=== PATIENT | male | born 1945 | race Caucasian/White ===

== ENCOUNTER 2020-03-05 12:04 | Outpatient (CLI) | payer MEDICARE, OTHER, SELFPAY ==
--- NOTE | ~2020-03-05 | CT_ITS ---
EXAMINATION: CTA chest PE protocol EXAM DATE: 03/05/2020 13:01 INDICATION: Left-sided chest pain, pleurodynia. History of pleurisy. Cough. TECHNIQUE: Spiral CTA of the chest (pulmonary arteries) was performed with 100 cc Omnipaque 350 intr avenous contrast injection. Images were acquired during the pulmonary arterial phase. Coronal maxi mum intensity projection 3D-reconstructions were created by the technologist on dedicated workstation . Axial, coronal and sagittal reformatted images were reviewed. The dose-length product (DLP) for t his examination was 620.80 mGy-cm. The exposure was tailored according to patient size (auto mA exp osure control), and iterative reconstruction (ASIR) was used as additional dose reduction technique. There is no prior study for comparison. Correlation was made with left rib series from 02/24/2018. FINDINGS: There is pulmonary embolism in the left main pulmonary artery extending into multiple segm ental pulmonary arteries. There is associated lingular subsegmental and left lower lobe segmental air space disease most likely pulmonary infarction. No evidence of right heart strain. Pneumonia not excl udable. There is small left pleural effusion. Left lower lobe subsegmental atelectasis. No thoracic aortic dissection. The lungs are clear. There are no pleural or pericardial effusions. Tracheobr onchial tree is patent. There is no mediastinal, hilar or axillary lymphadenopathy. There is no p neumothorax. Heart normal in size. There is mild coronary arterial calcification, arterial sclero sis. There is large cystic region to the superior pole of the left kidney, completely imaged. Modera te-sized gastroesophageal hiatal hernia. There is thoracic spondylosis without osteoblastic or osteo lytic lesions identified. IMPRESSION: 1. Left main pulmonary artery embolism extending into multiple left-sided segmental arteries, associ ated airspace disease most likely pulmonary infarction. 2. Cystic region superior pole left kidney measuring at least 7.6 cm, could be cyst but clearly imag ed Incompletely imaged cystic. Consider follow-up ultrasound or CT. 3. Moderate-sized gastroesophageal hiatal hernia. STAT hold and call. I confirmed with Gabbie that patient is in waiting room, and who is notifying o [facility] doctor of results. Patient will be given instructions at that time. Reviewed, dictated and finalized at location B. IMPRESSION: 1. Left main pulmonary artery embolism extending into multiple left-sided segm ental arteries, associated airspace disease most likely pulmonary infarction. 2. Cystic region superior pole left kidney measuring at least 7.6 cm, could be cyst but clearly imaged Incompletely imaged cystic. Consider follow-up ultraso und or CT. 3. Moderate-sized gastroesophageal hiatal hernia. STAT hold and call. I confirmed with Gabbie that patient is in waiting room, and who is notifying ordering doctor of results. Patient will be given instruct ions at that time.
[2020-03-05 12:44] LABS: Estimated Glomerular Filt Rate 49
== END 2020-03-05 12:05 | disposition home or self-care (01) ==
PROVIDERS: PCP Family Medicine; Visit Provider Family Medicine
DX: R07.81 Pleurodynia (principal); K44.9 Diaphragmatic hernia without obstruction or gangrene
CPT/HCPCS: 36415; 71275; Q9967

== ENCOUNTER 2020-03-05 18:32 | Inpatient (IN) | payer MEDICARE, OTHER, SELFPAY ==
--- NOTE | ~2020-03-05 | US_ITS ---
EXAMINATION: US venous doppler [facility] DATE: 03/06/2020 15:24 INDICATION: Chest pain TECHNIQUE: Orr scale images without and with compression and Doppler images of the bilateral lower e xtremity veins were obtained. COMPARISON: 05/06/2017 FINDINGS: The right common femoral vein, profunda femoral vein, femoral vein, popliteal vein, peroneal trunk, p osterior tibial veins, and greater saphenous vein are patent. The left common femoral vein, profunda femoral vein, femoral vein, popliteal vein, peroneal trunk, po sterior tibial veins, and greater saphenous vein are patent. IMPRESSION: 1. Patent bilateral lower extremity veins. No evidence of deep venous thrombosis. Reviewed, dictated and finalized at location A. IMPRESSION: 1. Patent bilateral lower extremity veins. No evidence of deep venous thrombosi s.
--- NOTE | ~2020-03-05 | CT_ITS ---
EXAMINATION: CT abdomen pelvis wo/w con DATE: 03/07/2020 13:00 INDICATION: Hydronephrosis TECHNIQUE: Computed tomography (CT) of the abdomen and pelvis was performed without intravenous contr ast. CT of the abdomen and pelvis was then performed with a total of 100 mL Omnipaque 350 intravenous contrast. The dose-length product (DLP) was 1268.53 mGy-cm. Automated exposure control and iterative reconstruction technique were employed. COMPARISON: 11/30/2003, 03/05/2020 FINDINGS: Peripheral airspace opacities are again seen in the lingula and left lower lobe, possibly e volving pulmonary infarction related to pulmonary embolism. There is a moderate-sized hiatal hernia. The heart size is normal. The liver, spleen, pancreas, gallbladder, and adrenal glands are normal. Cy sts of the right kidney measure up to 5.5 cm. There is severe left hydroureteronephrosis which contin ues to the level of the left distal ureter. No definite stone or urothelial lesion is identified. The re is significant cortical parenchymal thinning of the left kidney. There is calcified atherosclerosi s of the aorta and many of the other arteries. No pathologically enlarged abdominal or pelvic lymph n odes are identified. There is a fat-containing umbilical hernia. There is severe lumbar spondylosis. There is no free intraperitoneal gas or evidence of bowel obstruction. Tiny fat-containing umbilical hernia is noted. There are surgical clips in the pelvis, likely related to prostatectomy. IMPRESSION: 1. Severe left hydroureteronephrosis with severe cortical parenchymal thinning of the left kidney con tinuing to the level of the distal ureter of unclear etiology. No definite stone or stricture identif ied. 2. Peripheral opacities in the lingula and left lower lobe, likely evolving pulmonary infarct related to pulmonary embolism. Reviewed, dictated and finalized at location A. IMPRESSION: 1. Severe left hydroureteronephrosis with severe cortical parenchymal thinning of the left kidney continuing to the level of the distal ureter of unclear etio logy. No definite stone or stricture identified. 2. Peripheral opacities in the lingula and left lower lobe, likely evolving pul monary infarct related to pulmonary embolism.
--- NOTE | ~2020-03-05 | US_ITS ---
EXAMINATION: US renal BI EXAM DATE: 03/06/2020 15:24 INDICATION: Cystic lesion on pulmonary CT. TECHNIQUE: Multiple grayscale and Doppler images of the kidneys were obtained (by a technologist who performed the scan) and subsequently reviewed. There is no prior study for comparison. FINDINGS: Right kidney: There is normal contour and echogenicity. It measures 11.4 x 5.3 x 6.0 centimeters. An echoic exophytic lesion off the lower pole likely a cyst measuring up to 5.6 cm. There is no hydron ephrosis. Left kidney: There is normal contour and echogenicity with renal cortical thinning. It measures 17.3 x 10.8 x 10.0 centimeters. There is severe hydronephrosis, caliectasis, likely from chronic long-sta nding low-grade UPJ or ureteral obstruction, but there was no evidence of hydronephrosis on a CT scan in 2003. There is no hydronephrosis. Bladder unremarkable. IMPRESSION: 1. Probable severe chronic right-sided hydronephrosis. Reviewed, dictated and finalized at location B.
--- NOTE | ~2020-03-05 | NM_ITS ---
EXAMINATION: LUIS MANUEL umaña renal scan DATE: 03/07/2020 14:02 INDICATION: Hydronephrosis TECHNIQUE: 1.7 mCi Tc-99m MAG3 was administered IV. 40 mg furosemide was administered IV immediately afterward. The patient was scanned in the supine position. A posterior abdominal radionuclide angiog lorena was obtained. A subsequent time course of static images of the kidneys, ureters, and bladder was obtained. COMPARISON: None FINDINGS: The posterior abdominal radionuclide angiogram and sequential static images show normal size, positio n, and morphology of the right kidney. There is a small region of parenchymal uptake at the upper zachariah e of the left kidney which on CT can be seen at the periphery of the markedly dilated left renal morro ecting system with no discernible uptake associated with the very thin peripheral cortex along the mi d and lower left kidney. Peak renal parenchymal uptake was 28 min in left kidney and 1.8 min in right kidney (normal peak 3-5 minutes). The relative early renal uptake was 98% on the right and 2% on th e left (<40% is abnormal). No abnormalities of the ureters or bladder are seen. T1/2 for clearance of activity from the left kidney and proximal collecting system was unable to be d etermined due to the markedly decreased left renal function. T1/2 for clearance of activity from the right kidney and proximal collecting system was 13.7 minutes. Notes on interpretation: T1/2 <10 minutes is normal, 10-15 minutes is low grade obstruction of questi onable clinical significance, 15-20 minutes is partial obstruction that is likely clinically signific ant, >20 minutes is high grade obstruction. Note that false positives may be seen with supine positio adiel, dehydration, severely dilated nonobstructed kidney, atonic collecting system, poor renal functi on, and chronic furosemide use. IMPRESSION: 1. Severe parenchymal atrophy and markedly reduced renal activity of the left kidney likely related to the severe hydronephrosis identified on prior CT. The markedly reduced renal function which contri butes only 2% to total renal function precludes assessment for degree of on going obstruction. 2. Mildly delayed activity clearance from the right kidney which could be seen with low-grade obstru ction but without hydronephrosis on the immediately prior CT which would argue against obstruction wi th additional differential as detailed above. Reviewed, dictated and finalized at location A. IMPRESSION: 1. Severe parenchymal atrophy and markedly reduced renal activity of the left kidney likely related to the severe hydronephrosis identified on prior CT. The markedly reduced renal function which contributes only 2% to total renal functi on precludes assessment for degree of on going obstruction. 2. Mildly delayed activity clearance from the right kidney which could be seen with low-grade obstruction but without hydronephrosis on the immediately prior CT which would argue against obstruction with additional differential as ramona led above.
--- NOTE | ~2020-03-05 | XR_ITS ---
EXAMINATION: XR abdomen/kub 1V INDICATION: Hydronephrosis TECHNIQUE: Supine views of the abdomen were obtained on 2 radiographs. COMPARISON: CT from today FINDINGS: There are surgical clips in the pelvis. No dilated loops of bowel are evident. No urinary t ract calculi are identified. Phleboliths are seen in the pelvis. IMPRESSION: 1. No radiographic correlate for the patient's symptoms. Reviewed, dictated and finalized at location A.
[2020-03-05 18:38] VITALS: BP 167/81; PULSE 104; RESP 16; TEMP 37.1; O2SAT 98
[2020-03-05 18:55] VITALS: PULSE 106
[2020-03-05 19:03] VITALS: BP 164/95; PULSE 99; RESP 29; O2SAT 98
--- NOTE | 2020-03-05 19:23 | ED.SOB ---
HPI - SOB/Dyspnea General Chief Complaint: Shortness of Breath/Dyspnea Stated Complaint: BLOOD CLOT IN MY LUNG Time Seen by Provider: 03/05/20 19:00 History of Present Illness HPI Narrative: Patient is a 74-year-old male who presents the ER with left-sided chest pain. Ongoing for 3 days. Had an outpatient CTA of the chest performed by his PCP which showed a left main pulmonary artery embolism. Patient has history of lower extremity DVT several years ago. Has not currently been on anticoagulation. His PCP wrote a prescription for a Xarelto starter pack because the patient did not want to come to the hospital however the pharmacy did not have any of the starter packs so he came to the ER for further evaluation. He does report exertional dyspnea worsening over the last 3 days. No shortness of breath at rest. On the day of the onset of the left-sided chest pain he would cough and have blood-streaked sputum. That has since improved. No fevers or chills or sweats. He denies any recent long distance travel or any recent operations. He reports he has not been as mobile as he typically is. He has had no calf pain or lower extremity swelling. Reports in the past when he is on a blood thinner he had a short period of rectal bleeding that was never investigated but then also had significant hematuria and had to have a cystoscopy performed by Dr. Flores to stop the bleeding. Related Data Home Medications Medication Instructions Recorded Confirmed aspirin 81 mg chewable tablet 81 mg PO DAILY 03/05/20 03/05/20 calcium carbonate 600 mg calcium 600 mg PO DAILY PRN 03/05/20 03/05/20 (1,500 mg) tablet vitamin B complex 1 tablet PO DAILY 03/05/20 03/05/20 Allergies Allergy/AdvReac Type Severity Reaction Status Date / Time azithromycin Allergy Unknown Unknown Verified 03/05/20 10:36 Sulfa (Sulfonamide Allergy Unknown Other Verified 03/05/20 10:36 Antibiotics) Review of Systems Review of Systems: All systems reviewed & are unremarkable except as noted in HPI and below Constitutional: Constitutional: Denies chills, Denies fever(s) and Denies weakness ENT: Denies nasal congestion and Denies sore throat Cardiovascular: Cardiovascular: Reports chest pain, Denies rapid heart rate and Denies radiating jaw, neck or arm pain Respiratory: Respiratory: Reports cough, Reports dyspnea and Denies wheezing Gastrointestinal: Gastrointestinal: Denies abdominal pain, Denies nausea and Denies vomiting Musculoskeletal: Musculoskeletal: Denies muscle cramps Comments: No lower extremity edema PMFSH Past Medical History Medical History Bilateral carotid artery stenosis Chronic neck and back pain CKD (chronic kidney disease) stage 3, GFR 30-59 ml/min (~07/09/17) Diverticulitis Dyslipidemia Elevated lipids Essential (primary) hypertension Headache, migraine Hematuria, gross History of deep venous thrombosis (DVT) of distal vein of right lower extremity History of prostate cancer Hypertension Intractable migraine without status migrainosus Recurrent genital herpes Unspecified osteoarthritis, unspecified site Surgical History Surgical History History of hernia repair (~04/30/17) History of knee replacement (~05/2014) History of prostatectomy (~2003) Hx of left inguinal hernia repair (~11/25/18) Family History Family History Mother Acute myocardial infarction Congestive heart failure Other Family history of coronary artery disease Social History Social History Smoking packs per day: 0.5 Smoking cigarettes per day: 10.0 Years smoked: 0.5 Smoking pack-years: 0.25 Smoking status: Former smoker Tobacco type: cigarettes Second hand tobacco smoke exposure: Yes Smoking end date: 09/14/1965 Alcohol intake: never S
[2020-03-05] MEDS: HEPARIN SODIUM 5,000 UNITS/ML VIAL 6000 UNITS IV PUSH (19:34)
[2020-03-05] MEDS: HEPARIN SOD/D5W 100 UNITS/ML 25,000 UNITS/250 ML BAG 14 UNITS IV CONT (19:37)
[2020-03-05 19:39] LABS: Basophils Percent Auto 0.4 % (0.2-1.2); Eosinophils Absolute Auto 0.3 K/mm3 (0-0.3); Eosinophils Percent Auto 4.5 % (0-4.4); Hematocrit 30.8 % (42.0-52.0); Hemoglobin 10.4 g/dL (14.0-18.0); Immature Granulocyte Absolute 0.03 K/mm3 (0.00-0.031); Immature Granulocyte Percent A 0.4 % (0-0.5); Lymphocytes Absolute Auto 1.88 K/mm3 (0.9-3.2); Lymphocytes Percent Auto 24.9 % (18.3-44.2); Mean Corpuscular HGB Conc 33.8 g/dl (32-36); Mean Corpuscular Hemoglobin 32.6 pg (26-34); Mean Corpuscular Volume 96.6 fl (80-100); Monocytes Percent Auto 12.6 % (2.6-8.5); Neutrophils Absolute Auto 4.3 K/mm3 (1.3-6.7); Neutrophils Percent Auto 57.2 % (45.5-73.1); Platelet Count Result 274 k/mm3 (150-375); Red Blood Count 3.19 M/mm3 (4.6-6.20); Red Cell Distribution Width 14.4 % (11.5-14.5); White Blood Count 7.5 K/mm3 (4.5-10.0)
[2020-03-05 19:45] VITALS: BP 156/88; PULSE 97; RESP 16; O2SAT 99
[2020-03-05 19:47] LABS: INR 1.1; Partial Thromboplastin Time 39.5 SECONDS (22.3-36.8); Prothrombin Time 14.1 Seconds (11.1-14.7)
[2020-03-05 19:48] LABS: Blood Urea Nitrogen 25 mg/dL (9-20); Calcium 9.4 mg/dL (8.4-10.2); Carbon Dioxide 22 mmol/L (22-30); Chloride 106 mmol/L (98-107); Estimated CRCL calculation 47 ml/min; Estimated Glomerular Filt Rate 59; Glucose 110 mg/dL (75-110); Potassium 4.8 mmol/L (3.4-5.0); Sodium 137 mmol/L (137-145)
[2020-03-05 20:00] LABS: Troponin I < 0.012 ng/mL (0.000-0.034)
--- NOTE | 2020-03-05 22:45 | ADMGEN ---
This patient, Darnell Waddell, was admitted to Medical Room 342-01. Patient/family oriented to hospital policies and general routines including ID bracelet, bed and alarms, visiting hours, pain management, procedures, bathroom and other care routines, personal items, smoking policy, room service/diet, and visiting hours. Valuables list has been completed. Information on how to activate the Rapid Response Team has been discussed. Patient/Family are encouraged to report perceived risks to care and to ask questions if they do not understand what they are told or what they should do.
[2020-03-05 22:47] VITALS: BMI 27.3
[2020-03-05 22:51] VITALS: PULSE 92
[2020-03-05 22:53] VITALS: BP 154/95; PULSE 93; RESP 20; TEMP 36.7; O2SAT 97
--- NOTE | 2020-03-05 23:27 | PM.IMHP ---
H&P: HPI History of Present Illness Chief complaint: pulmonary embolism Narrative: This is a pleasant 74 year old male with known history of prevoius DVT, HTN, and CKD stage III who presented to the hospital with a complaint of left sided pleuritic chest pain for the past 5 days. The patient was evaluated by his PCP and underwent CTA Chest which demonstrated a left main pulmonary embolism. The pateint was given a prescription for Xarelto but ended up coming to the hospital as he could not obtain a starter pack at the pharmacy. The patient denies any recent fevers or chills but has had sporadic productive cough with hemoptysis. He has also had exertional dyspnea. His pleuritic chest pain is located on his left lower lateral chest wall. He denies any recent surgeries or travel but does admit to living a very sedentary lifestyle. He used to ride his bike for exercise but stopped doing to about 3 years ago when he was battling with gross hematuria. Today he denies any bleeding. He also denies any lower extremity swelling, redness or pain. The patient was started on IV heparin and we have been asked to admit him to the hospital for further care. No other complaints. Review of Systems Review of Systems: All systems reviewed & are unremarkable except as noted in HPI and below PMFSH Past Medical History Medical History Bilateral carotid artery stenosis Chronic neck and back pain CKD (chronic kidney disease) stage 3, GFR 30-59 ml/min (~07/09/17) Diverticulitis Dyslipidemia Elevated lipids Essential (primary) hypertension Headache, migraine Hematuria, gross History of deep venous thrombosis (DVT) of distal vein of right lower extremity History of prostate cancer Hypertension Intractable migraine without status migrainosus Recurrent genital herpes Unspecified osteoarthritis, unspecified site Surgical History Surgical History History of hernia repair (~04/30/17) History of knee replacement (~05/2014) History of prostatectomy (~2003) Hx of left inguinal hernia repair (~11/25/18) Family History Family History Mother Acute myocardial infarction Congestive heart failure Other Family history of coronary artery disease Social History Social History Smoking packs per day: 0.5 Smoking cigarettes per day: 10.0 Years smoked: 0.5 Smoking pack-years: 0.25 Smoking status: Former smoker Tobacco type: cigarettes Second hand tobacco smoke exposure: Yes Smoking end date: 09/14/1965 Alcohol intake: never Substance use: never Substance use type: does not use Gender identity (if verbalized by the patient): Male Spiritual care concerns: No Meds Home Medications and Allergies Home Medications Medication Instructions Recorded Confirmed Type atorvastatin 10 mg tablet 10 mg PO DAILY #90 tablet 12/13/19 03/05/20 Rx lisinopril 10 mg tablet 10 mg PO DAILY #90 tablet 12/27/19 03/05/20 Rx valacyclovir 1 gram tablet See Rx Instructions .ROUTE 02/07/20 03/05/20 Rx .COMPLEX #90 tablet kvvnccmoru-ldhkdzu-kezhfxkp 50 1 cap PO Q6H PRN #60 cap 02/16/20 03/05/20 Rx mg-325 mg-40 mg capsule aspirin 81 mg chewable tablet 81 mg PO DAILY 03/05/20 03/05/20 History calcium carbonate 600 mg calcium 600 mg PO DAILY PRN 03/05/20 03/05/20 History (1,500 mg) tablet rivaroxaban 15 mg (42)-20 mg (9) See Rx Instructions PO PER PKG DIR 03/05/20 03/05/20 Rx tablets in a starter pack #51 each vitamin B complex 1 tablet PO DAILY 03/05/20 03/05/20 History Allergies Allergy/AdvReac Type Severity Reaction Status Date / Time azithromycin Allergy Unknown Unknown Verified 03/05/20 10:36 Sulfa (Sulfonamide Allergy Unknown Other Verified 03/05/20 10:36 Antibiotics) Vital Signs Vital Signs - 24 hr 03/05/20 1
[2020-03-06] VITALS (10 sets, daily range): BP systolic 127–158; BP diastolic 70–83; PULSE 68–100; RESP 12–21; TEMP 36.5–37; O2SAT 97–99
--- NOTE | 2020-03-06 | ECHO_ITS ---
Patient Info Name: Darnell Waddell Age: 74 years : 1945 Gender: Male Ht: 69 in Wt: 185 lbs BSA: 2.04 m2 HR: 87 bpm BP: 127 / 75 mmHg Heart Rhythm: Sinus Rhythm Technical Quality: Good Exam Date: 03/06/2020 11:32 AM Exam Location: [facility] Patient Status: Inpatient Admit Date: 03/05/2020 Staff Ordering Physician: Nilda Medrano PA-C [employer] Set Up Operator: Ronnie Pardo, AME, RT Attending Provider: Nilda Medrano PA-C Referring Physician: Marcela CASIANO; Exam Type: CA echo doppler color flow Study Info Indications I26.99 - Other pulmonary embolism without acute cor pulmonale Complete two-dimensional, color flow and Doppler transthoracic echocardiogram is performed. Summary 1. Normal left ventricular systolic function with no focal wall motion abnormalities. Grade 2 diastolic dysfunction is present. Normal LV size with mild concentric left ventricular hypertrophy and mild septal hypertrophy, with no evidence of outflow tract gradient. Calculated ejection fraction is 64%. The global longitudinal strain was -17%, slightly low, suggesting early systolic dysfunction. 2. Right ventricular chamber dimension is normal. 3. Normal valve function. 4. Normal sinus rhythm. 5. Pulmonary pressure could not be estimated on this study. Left Ventricle Left ventricular chamber dimension is normal. Left ventricular systolic function is normal, estimated at Empty. There is mild asymmetric septal increased left ventricular wall thickness. Left ventricular septal wall motion is normal. The left ventricular diastolic function is grade II diastolic dysfunction. E/e' Empty is abnormal. Global longitudinal strain is not elevated at 17 %. Right Ventricle Right ventricular chamber dimension is normal. Right ventricular systolic function is normal. Left Atria Left atrial chamber dimension is normal. Right Atria Right atrial chamber dimension is normal. Aortic Valve The aortic valve is trileaflet. There is no aortic valve sclerosis. There is no aortic valve stenosis. There is trace aortic valve regurgitation. Pulmonic Valve The pulmonic valve is normal. There is no pulmonic valve stenosis. There is trace pulmonic regurgitation. Mitral Valve The mitral valve has normal leaflets. There is no mitral valve stenosis. There is trace mitral valve regurgitation. Tricuspid Valve The tricuspid valve leaflets are normal. There is no significant tricuspid valve stenosis. There is no tricuspid valve regurgitation. No pulmonary hypertension, estimated pulmonary arterial systolic pressure is Empty. Pericardium/Pleural The pericardium appears normal. There is no pericardial effusion. Inferior Vena Cava Normal inferior vena cava with >50% collapse upon inspiration consistent with Empty right atrial pressure, Empty. Aorta The aortic root size at the sinus of Valsalva is normal. The prox ascending aorta size is normal. Left Ventricular Outflow Tract Name Value Normal LVOT 2D LVOT Diameter 2.2 cm LVOT Doppler LVOT Peak Gradient 3 mmHg LVOT Mean Gradient
[2020-03-06 01:59] LABS: Partial Thromboplastin Time 156.9 SECONDS (22.3-36.8)
[2020-03-06] MEDS: lisinopriL 10 MG TABLET PO (08:32)
[2020-03-06] MEDS: ASPIRIN 81 MG CHEWABLE TABLET PO (08:32)
[2020-03-06] MEDS: VITAMIN B COMPLEX CAPSULE 1 CAP PO (08:32)
[2020-03-06] MEDS: ATORVASTATIN 10 MG TABLET PO (08:32)
[2020-03-06] MEDS: ACETAMINOPHEN 325 MG TABLET 650 MG PO (08:44)
[2020-03-06 09:58] LABS: Basophils Percent Auto 0.6 % (0.2-1.2); Eosinophils Absolute Auto 0.5 K/mm3 (0-0.3); Eosinophils Percent Auto 6.8 % (0-4.4); Hematocrit 31.8 % (42.0-52.0); Hemoglobin 10.4 g/dL (14.0-18.0); Immature Granulocyte Absolute 0.05 K/mm3 (0.00-0.031); Immature Granulocyte Percent A 0.8 % (0-0.5); Lymphocytes Absolute Auto 1.76 K/mm3 (0.9-3.2); Lymphocytes Percent Auto 26.7 % (18.3-44.2); Mean Corpuscular HGB Conc 32.7 g/dl (32-36); Mean Corpuscular Hemoglobin 32.2 pg (26-34); Mean Corpuscular Volume 98.5 fl (80-100); Mean Platelet Volume 9.4 fl (7.4-10.4); Monocytes Absolute Auto 0.6 K/mm3 (0.1-0.6); Monocytes Percent Auto 8.5 % (2.6-8.5); Neutrophils Absolute Auto 3.7 K/mm3 (1.3-6.7); Neutrophils Percent Auto 56.6 % (45.5-73.1); Platelet Count Result 284 k/mm3 (150-375); Red Blood Count 3.23 M/mm3 (4.6-6.20); Red Cell Distribution Width 14.7 % (11.5-14.5); White Blood Count 6.6 K/mm3 (4.5-10.0)
[2020-03-06 10:16] LABS: Partial Thromboplastin Time 42.6 SECONDS (22.3-36.8)
[2020-03-06] MEDS: HEPARIN SODIUM 5,000 UNITS/ML VIAL 6000 UNITS IV PUSH (10:31)
--- NOTE | 2020-03-06 12:27 | PM.IMPN ---
Progress Note: A&P Assessment and Plan (1) Acute pulmonary embolism: Qualifiers: Pulmonary embolism type: unspecified Acute cor pulmonale presence: unspecified Qualified Code(s): I26.99 - Other pulmonary embolism without acute cor pulmonale Code(s): I26.99 - Other pulmonary embolism without acute cor pulmonale Status: Acute Assessment and Plan: -----patient is currently on a heparin drip and we are going to transition him to Eliquis tomorrow AM as he has taken this in the past and done well with this. Care coordination is going to rodriguez this. Will await echo results. Likely discharge tomorrow AM (2) Pleuritic chest pain: Code(s): R07.81 - Pleurodynia Status: Acute Assessment and Plan: -----Secondary to acute pulmonary embolism. Continue pain control as needed. (3) CKD (chronic kidney disease) stage 3, GFR 30-59 ml/min: Onset Date: ~07/09/17 Code(s): N18.3 - Chronic kidney disease, stage 3 (moderate) Status: Chronic Assessment and Plan: ----Stable. Monitor renal function. Avoid nephrotoxic agents. Renally dose medications. Monitor urine output. (4) Essential (primary) hypertension: Code(s): I10 - Essential (primary) hypertension Status: Chronic Assessment and Plan: -----Monitor blood pressure. The patient does not appear to be on any home antihypertensives. Last bp 127/75 but has been higher this stay. Monitor trends. (5) Dyslipidemia: Code(s): E78.5 - Hyperlipidemia, unspecified Status: Chronic Assessment and Plan: -----Continue statin therapy. Time Spent With Patient Time with patient: 25 - 35 minutes Subjective Date/time seen: 03/06/20 12:27 Interval history: Pt is a 74-year-old male here for pulmonary emboli. Patient was seen today and states that he feels okay. He is still having left-sided pleuritic chest pain. It hurts worse when he takes big breaths any feels like he can't take a big continue with breath without having some pain or restriction in the left lung. He does not necessarily have shortness of breath when walking or sitting. He does not have any dull cardiac chest pain with this. He has a history of a DVT where he took Eliquis. He has had 1 loose stool today and is eating and drinking fine. Review of Systems Review of Systems: All systems reviewed & are unremarkable except as noted in HPI and below Exam Narrative: Exam Narrative: General: Well developed well nourished patient resting comfortably in bed in no acute distress HEENT: normocephalic Neck: supple Neuro: Alert and oriented x4 CV:RRR. Telemetry reviewed with no significant abnormalities. He did have occasional PVCs Resp:CTA, no crackles Abd: Soft, non distended. No pain to palpation. Positive bowel sounds Extremities: No swelling, erythema, or pain to palpation. Objective Data Vital Signs Vital Signs: Vital Signs - 24 hr 03/05/20 18:38 03/05/20 18:55 03/05/20 19:03 Temperature 98.7 F Pulse Rate 104 H 106 H 99 Respiratory Rate 16 29 H Blood Pressure 167/81 H 164/95 H Pulse Oximetry 98 98 03/05/20 19:45 03/05/20 22:51 03/05/20 22:53 Temperature 98.0 F Pulse Rate 97 92 93 Respiratory Rate 16 20 Blood Pressure 156/88 H 154/95 H Pulse Oximetry 99 97 03/06/20 00:00 03/06/20 04:00 03/06/20 06:00 Temperature 97.7 F Pulse Rate 100 77 81 Respiratory Rate 21 H Blood Pressure 127/75 Pulse Oximetry 97 03/06/20 08:00 03/06/20 10:54 Temperature 98.4 F Pulse Rate 88 Respiratory Rate Blood Pressure Pulse Oximetry Intake/Output Intake/Output: Intake & Output 03/03/20 03/04/20 03/05/20 03/06/20 23:59 23:59 23:59 23:59 Intake Total 641 Output Total 250 Balance 391 Meds/Results Medications: Active Medications Generic Name Dose Route Start Last Admin Trade Name Freq PRN Reason Stop Dose Admin Acetaminophen 650 mg 03/05/20
[2020-03-06] MEDS: HEPARIN SOD/D5W 100 UNITS/ML 25,000 UNITS/250 ML BAG 15 UNITS IV CONT (15:25)
[2020-03-06 16:44] LABS: Glucose Point of Care 99 (65-105)
[2020-03-06 16:56] LABS: Partial Thromboplastin Time > 200.0 SECONDS (22.3-36.8)
[2020-03-07] VITALS: PULSE 74
[2020-03-07 01:01] LABS: Partial Thromboplastin Time 128.3 SECONDS (22.3-36.8)
[2020-03-07 04:00] VITALS: PULSE 67
[2020-03-07 06:03] VITALS: BP 133/76; PULSE 76; RESP 16; TEMP 36.3; O2SAT 95
[2020-03-07 07:17] LABS: Hemoglobin 9.6 g/dL (14.0-18.0)
[2020-03-07 07:29] LABS: Magnesium 2.3 mg/dL (1.6-2.3)
--- NOTE | 2020-03-07 07:55 | PC.NURSE ---
Pt received a PTT of 88, which per protocol for the heparin drip, no change in rate and no bolus to be given.
[2020-03-07 08:00] VITALS: PULSE 81
--- NOTE | 2020-03-07 08:58 | WPDURCON ---
Assessment and Plan Assessment and plan (1) Hydronephrosis of left kidney: Code(s): N13.30 - Unspecified hydronephrosis Status: Acute Assessment and Plan: Keep NPO, Will obtain CT abdomen/pelvis, KUB and Renal Lasix Scan to ensure no obstruction is present causing hydronephrosis. It appears to be chronic and not affecting creatinine level. Will draw an updated creatinine to ensure it is not affected by hydronephrosis and to ensure he can receive contrast. If scans are not concerning for obstruction, patient will be ok to be discharged home this afternoon as planned. Will discuss findings with Dr. Rubio and discuss plan with patient. Urology Consult Note HPI Date Seen: 03/07/20 Requesting Physician: Nilda Medrano PA-C Primary Care Provider: Caesar Mathews MD Consult Narrative Narrative: Darnell Waddell is a 74 year old male who was admitted through the ED for chest pain and exertional dyspnea x 3 days. He was initially seen by his PCP and was sent for a CTA which found a left pulmonary artery embolism as well as a left renal cyst. PCP tried placing him on Xarelto, but he instead went to the ED for evaluation. He has been on a Heparin drip. He then was sent for a MELY to evaluate the left renal cyst which was found to be benign but chronic left hydronephrosis was found. Creatinine on 03/05/2020 was 1.20 but hasn't been checked since. He has no urinary symptoms at this time, denies hematuria, dysuria, frequency, hesitancy, flank pain, abdominal pain and is afebrile. He has a history of hematuria on anticoagulants in the past which caused him to have a cystoscopy with bladder fulgeration by Dr. Flores, otherwise he has an insignificant urologic history. Review of Systems Cardiovascular: Cardiovascular: Denies chest pain Respiratory: Respiratory: Reports no additional respiratory complaints Gastrointestinal: Gastrointestinal: Denies abdominal pain, Denies nausea and Denies vomiting Genitourinary: Genitourinary: Denies hematuria, Denies dysuria, Denies flank pain, Denies urinary frequency and Denies urinary urgency [facility] Past Medical History Medical History Bilateral carotid artery stenosis Chronic neck and back pain CKD (chronic kidney disease) stage 3, GFR 30-59 ml/min (~07/09/17) Diverticulitis Dyslipidemia Elevated lipids Essential (primary) hypertension Headache, migraine Hematuria, gross History of deep venous thrombosis (DVT) of distal vein of right lower extremity History of prostate cancer Hypertension Intractable migraine without status migrainosus Recurrent genital herpes Unspecified osteoarthritis, unspecified site Surgical History Surgical History History of hernia repair (~04/30/17) History of knee replacement (~05/2014) History of prostatectomy (~2003) Hx of left inguinal hernia repair (~11/25/18) Family History Family History Mother Acute myocardial infarction Congestive heart failure Other Family history of coronary artery disease Social History Social History Smoking packs per day: 0.5 Smoking cigarettes per day: 10.0 Years smoked: 0.5 Smoking pack-years: 0.25 Smoking status: Former smoker Tobacco type: cigarettes Second hand tobacco smoke exposure: Yes Smoking end date: 09/14/1965 Alcohol intake: never Substance use: never Substance use type: does not use Gender identity (if verbalized by the patient): Male Spiritual care concerns: No Meds Home Medications and Allergies Home Medications Medication Instructions Recorded Confirmed Type atorvastatin 10 mg tablet 10 mg PO DAILY #90 tablet 12/13/19 03/05/20 Rx lisinopril 10 mg tablet 10 mg PO DAILY #90 tablet 12/27/19 03/05/20 Rx valacyclovir 1 gram tablet
--- NOTE | 2020-03-07 08:58 | PC.NURSE ---
Okayed with xray, [facility], and CT that pt can receive oral meds before procedures.
[2020-03-07] MEDS: ASPIRIN 81 MG CHEWABLE TABLET PO (09:01)
[2020-03-07] MEDS: lisinopriL 10 MG TABLET PO (09:01)
[2020-03-07] MEDS: ATORVASTATIN 10 MG TABLET PO (09:01)
[2020-03-07] MEDS: VITAMIN B COMPLEX CAPSULE 1 CAP PO (09:01)
[2020-03-07 11:06] LABS: Blood Urea Nitrogen 22 mg/dL (9-20); Calcium 9.5 mg/dL (8.4-10.2); Carbon Dioxide 24 mmol/L (22-30); Chloride 105 mmol/L (98-107); Estimated CRCL calculation 43 ml/min; Estimated Glomerular Filt Rate 54; Glucose 110 mg/dL (75-110); Potassium 4.7 mmol/L (3.4-5.0); Sodium 135 mmol/L (137-145)
[2020-03-07 12:00] VITALS: PULSE 78
[2020-03-07] MEDS: APIXABAN 5 MG TABLET 10 MG PO (12:08)
[2020-03-07] MEDS: FUROSEMIDE INJ 40 MG/4 ML VIAL IV PUSH (13:17)
--- NOTE | 2020-03-07 15:03 | PM.DS ---
DS: Admitting Diagnosis Admitting Diagnosis Admitting Diagnosis: Other pulmonary embolism without acute cor pulmonale DS: Discharge Diagnosis Discharge Diagnosis (1) Acute pulmonary embolism: Qualifiers: Pulmonary embolism type: unspecified Acute cor pulmonale presence: unspecified Qualified Code(s): I26.99 - Other pulmonary embolism without acute cor pulmonale Code(s): I26.99 - Other pulmonary embolism without acute cor pulmonale Status: Acute Assessment and Plan: -----patient has not had any hypoxia or tachycardia the day of discharge. He denies any shortness of breath. He was transition from heparin to Eliquis today as he has used Eliquis in the past and not had any issues. He was educated on the risk of Eliquis and the worrisome signs and symptoms to look out for. He is to follow-up with his primary care physician in 1-2 weeks (2) Pleuritic chest pain: Code(s): R07.81 - Pleurodynia Status: Acute Assessment and Plan: -----resolved. Educated use Tylenol for pain (3) CKD (chronic kidney disease) stage 3, GFR 30-59 ml/min: Onset Date: ~07/09/17 Code(s): N18.3 - Chronic kidney disease, stage 3 (moderate) Status: Chronic Assessment and Plan: ----Stable. Patient's left kidney function is markedly reduced and only has about 2% of the total renal function. The patient's creatinine 1.3 and his GFR is 54. This is probably a chronic finding. Looks like his right kidney is compensating well. Patient was educated about kidney disease and that he needs to follow-up with urology about this and get it routinely monitored by his PCP. He may need a kidney specialist in the future. (4) Essential (primary) hypertension: Code(s): I10 - Essential (primary) hypertension Status: Chronic Assessment and Plan: -----Monitor blood pressure. The patient does not appear to be on any home antihypertensives. Last bp 133/76. He says he takes his bp at home and can be 100/80 at times. Continue monitoring at home and follow up with pcp. (5) Dyslipidemia: Code(s): E78.5 - Hyperlipidemia, unspecified Status: Chronic Assessment and Plan: -----Continue statin therapy. (6) Hydronephrosis of left kidney: Code(s): N13.30 - Unspecified hydronephrosis Status: Acute Assessment and Plan: ----- CT shows: Severe left hydroureteronephrosis with severe cortical parenchymal thinning of the left kidney continuing to the level of the distal ureter of unclear etiology. No definite stone or stricture identified. NM scan: 1. Severe parenchymal atrophy and markedly reduced renal activity of the left kidney likely related to the severe hydronephrosis identified on prior CT. The markedly reduced renal function which contributes only 2% to total renal function precludes assessment for degree of on going obstruction. 2. Mildly delayed activity clearance from the right kidney which could be seen with low-grade obstruction but without hydronephrosis on the immediately prior CT which would argue against obstruction with additional differential as detailed above. -follow up with urology outpt. may need outpt nephrology consult in the future. For now, follow with pcp. DS: Summary Hospital Course Reason for hospitalization: PE Hospital Course: Patient is 74-year-old male who presented emergency room after abnormal imaging outpatient that showed a pulmonary emboli and was unable to get anticoagulation outpatient. associated symptoms included left-sided pleuritic chest pain which resolved during his hospitalization. Hemoglobin initially 10.4. White blood cell count normal. BMP within normal limits. CT outpatient showed:1. Left main pulmonary artery embolism extending into multiple left-sided segmental arteries, associated airspace disease most likely pulmonary infarction. 2. Cystic region superior pole left kidney measuring at
== END 2020-03-07 16:12 | disposition home or self-care (01) | DRG 176 ==
LOC: ANHED 19:00 → ANH3MED 21:32
PROVIDERS: Nurse Practitioner Adult Health; Physician Assistant; Admitting Provider Family Medicine; Emergency Provider Emergency Medicine; PCP Family Medicine; Visit Provider Internal Medicine
DX: I26.99 Other pulmonary embolism without acute cor pulmonale (principal); N13.30 Unspecified hydronephrosis; I12.9 Hypertensive chronic kidney disease with stage 1 through stage 4 chronic kidney disease, or unspecified chronic kidney disease; N18.3 Chronic kidney disease, stage 3 (moderate); R07.81 Pleurodynia; E78.5 Hyperlipidemia, unspecified; Z85.46 Personal history of malignant neoplasm of prostate; Z86.718 Personal history of other venous thrombosis and embolism; Z87.891 Personal history of nicotine dependence
CPT/HCPCS: 36415; 71275; 74018; 74178; 76775; 78708; 80048; 83735; 84484; 85014; 85018; 85025; 85610; 85730; 93306; 93970; 96365; 96366; 99291; A9270; A9562; G0378; J1644; J1940; Q9967

== ENCOUNTER 2020-07-02 09:36 | Outpatient (CLI) | payer MEDICARE, OTHER, SELFPAY ==
[2020-07-02 13:19] LABS: Iron 58 ug/dL (49-181)
[2020-07-02 13:20] LABS: Anion Gap 12 mmol/L (8-16); Blood Urea Nitrogen 30 mg/dL (9-20); Carbon Dioxide 23 mmol/L (22-30); Chloride 105 mmol/L (98-107); Estimated Glomerular Filt Rate 54; Glucose 122 mg/dL (75-110); Potassium 4.7 mmol/L (3.4-5.0); Sodium 140 mmol/L (137-145)
[2020-07-02 14:20] LABS: Percent Iron Saturation 13 % (20-50)
[2020-07-04 20:07] LABS: Anti Cardio Antibody IgM <12 MPL (<=12); Anti Cardiolipin Antibody IgA <11 APL (<=11); Anti Cardiolipin Antibody IgG <14 GPL (<=14)
[2020-07-04 20:49] LABS: Antithrombin III Activity 111 % normal (80-135)
[2020-07-04 21:13] LABS: Lupus dRVVT 1:1 Mix Interpreta Not Indicated; Lupus dRVVT Screen 37 sec (<=45); PTT-LA Screen 26 sec (<=40)
[2020-07-05 02:05] LABS: Homocysteine 17.5 umol/L (<11.4)
== END 2020-07-02 09:37 | disposition home or self-care (01) ==
PROVIDERS: PCP Family Medicine; Visit Provider Internal Medicine Hematology & Oncology
DX: Z86.2 Personal history of diseases of the blood and blood-forming organs and certain disorders involving the immune mechanism (principal)
CPT/HCPCS: 36415; 80048; 81240; 81241; 82232; 82728; 83090; 83540; 83550; 85300; 85303; 85306; 85613; 85730; 86146; 86147

== ENCOUNTER 2020-07-05 08:20 | Outpatient (CLI) | payer MEDICARE, OTHER, SELFPAY ==
[2020-07-05 08:30] LABS: Basophils Percent Auto 0.5 % (0.2-1.2); Eosinophils Absolute Auto 0.3 K/mm3 (0-0.3); Eosinophils Percent Auto 4.9 % (0-4.4); Hemoglobin 10.3 g/dL (14.0-18.0); Immature Granulocyte Absolute 0.01 K/mm3 (0.00-0.031); Immature Granulocyte Percent A 0.2 % (0-0.5); Lymphocytes Absolute Auto 2.87 K/mm3 (0.9-3.2); Lymphocytes Percent Auto 48.3 % (18.3-44.2); Mean Corpuscular HGB Conc 32.2 g/dl (32-36); Mean Corpuscular Hemoglobin 30.4 pg (26-34); Mean Corpuscular Volume 94.4 fl (80-100); Mean Platelet Volume 8.9 fl (7.4-10.4); Monocytes Absolute Auto 0.6 K/mm3 (0.1-0.6); Monocytes Percent Auto 10.4 % (2.6-8.5); Neutrophils Absolute Auto 2.1 K/mm3 (1.3-6.7); Neutrophils Percent Auto 35.7 % (45.5-73.1); Platelet Count Result 255 k/mm3 (150-375); Red Blood Count 3.39 M/mm3 (4.6-6.20); Red Cell Distribution Width 14.2 % (11.5-14.5); White Blood Count 5.9 K/mm3 (4.5-10.0)
[2020-07-05 11:38] LABS: Add Urine Microscopic? NO; Appearance Urine Clear (Clear); Bilirubin Urine Negative (Negative); Blood Urine Negative (Negative); Color Urine Straw (Yellow); Glucose Urine UA Negative (Negative); Ketones Urine Negative (Negative); Leukocyte Esterase Ur Negative LEU/UL (Negative); Nitrate Urine Negative (Negative); Protein Urine Negative (Negative); Specific Grav Ur 1.012 (1.001-1.035); Urobilinogen Urine Negative mg/dL (<2.0)
== END 2020-07-05 08:21 | disposition home or self-care (01) ==
PROVIDERS: PCP Family Medicine; Visit Provider Internal Medicine Hematology & Oncology
DX: Z86.718 Personal history of other venous thrombosis and embolism (principal); R31.9 Hematuria, unspecified; Z86.2 Personal history of diseases of the blood and blood-forming organs and certain disorders involving the immune mechanism
CPT/HCPCS: 36415; 81003; 85025; 86146

== ENCOUNTER 2020-07-11 11:12 | Outpatient (CLI) | payer MEDICARE, OTHER, SELFPAY ==
[2020-07-11 13:08] LABS: Iron 41 ug/dL (49-181)
[2020-07-11 13:19] LABS: Percent Iron Saturation 10 % (20-50)
[2020-07-11 14:20] LABS: Folic Acid > 20.0 ng/mL (2.76->20)
== END 2020-07-11 11:13 | disposition home or self-care (01) ==
PROVIDERS: PCP Family Medicine; Visit Provider Internal Medicine Hematology & Oncology
DX: Z86.2 Personal history of diseases of the blood and blood-forming organs and certain disorders involving the immune mechanism (principal); D64.9 Anemia, unspecified
CPT/HCPCS: 36415; 82607; 82728; 82746; 83540; 83550

== ENCOUNTER 2020-07-12 10:28 | Outpatient (CLI) | payer MEDICARE, OTHER, SELFPAY ==
[2020-07-12 12:40] LABS: IFOB Positive Control Positive; Immunochemical Fecal Occult Bl Negative (N)
== END 2020-07-12 10:29 | disposition home or self-care (01) ==
LOC: ANHLAB 10:33
PROVIDERS: PCP Family Medicine; Visit Provider Internal Medicine Hematology & Oncology
DX: D64.9 Anemia, unspecified (principal)
CPT/HCPCS: 82274

== ENCOUNTER 2020-08-20 14:02 | Outpatient (CLI) | payer MEDICARE, OTHER, SELFPAY ==
[2020-08-20 14:21] LABS: Basophils Percent Auto 0.4 % (0.2-1.2); Eosinophils Absolute Auto 0.3 K/mm3 (0-0.3); Eosinophils Percent Auto 3.6 % (0-4.4); Hematocrit 34.5 % (42.0-52.0); Hemoglobin 11.1 g/dL (14.0-18.0); Immature Granulocyte Absolute 0.02 K/mm3 (0.00-0.031); Immature Granulocyte Percent A 0.3 % (0-0.5); Lymphocytes Absolute Auto 2.19 K/mm3 (0.9-3.2); Lymphocytes Percent Auto 28.5 % (18.3-44.2); Mean Corpuscular HGB Conc 32.2 g/dl (32-36); Mean Corpuscular Hemoglobin 31.4 pg (26-34); Mean Corpuscular Volume 97.5 fl (80-100); Mean Platelet Volume 9.2 fl (7.4-10.4); Monocytes Absolute Auto 0.8 K/mm3 (0.1-0.6); Monocytes Percent Auto 10.8 % (2.6-8.5); Neutrophils Absolute Auto 4.3 K/mm3 (1.3-6.7); Neutrophils Percent Auto 56.4 % (45.5-73.1); Platelet Count Result 231 k/mm3 (150-375); Red Blood Count 3.54 M/mm3 (4.6-6.20); Red Cell Distribution Width 15.5 % (11.5-14.5); White Blood Count 7.7 K/mm3 (4.5-10.0)
[2020-08-20 14:24] LABS: Blood Urea Nitrogen 26 mg/dL (8-26); Carbon Dioxide 22 mmol/L (22-30); Chloride 106 mmol/L (98-109); Estimated Glomerular Filt Rate 45; Glucose 125 mg/dL (70-105); Potassium 4.6 mmol/L (3.5-4.9); Sodium 138 mmol/L (138-146)
[2020-08-20 17:53] LABS: Alanine Aminotransferase 26 U/L (4-50); Albumin Level 4.1 g/dL (3.5-5.1); Alkaline Phosphatase 100 U/L (38-126); Anion Gap 12 mmol/L (8-16); Aspartate Amino Transferase 28 U/L (17-59); Bilirubin,Total 0.2 mg/dL (0.2-1.3); Blood Urea Nitrogen 26 mg/dL (9-20); Calcium 9.7 mg/dL (8.4-10.2); Carbon Dioxide 24 mmol/L (22-30); Chloride 104 mmol/L (98-107); Estimated Glomerular Filt Rate 54; Glucose 122 mg/dL (75-110); Lactate Dehydrogenase 524 U/L (313-618); Potassium 4.9 mmol/L (3.4-5.0); Sodium 140 mmol/L (137-145)
[2020-08-20 18:01] LABS: Iron 26 ug/dL (49-181)
[2020-08-20 18:09] LABS: Immunoglobulin A 327 mg/dL (70-400); Immunoglobulin G 1269 mg/dL (700-1600); Immunoglobulin M 58 mg/dL (40-230)
[2020-08-20 18:12] LABS: Percent Iron Saturation 7 % (20-50)
[2020-08-23 13:56] LABS: Kappa\\Lambda Light Chains 1.16 (0.26-1.65); Lambda Light Chain 28.8 mg/L (5.7-26.3)
[2020-08-23 22:14] LABS: Albumin 3.9 g/dL (3.8-4.8); Alpha 1 Globulin 0.3 g/dL (0.2-0.3); Alpha 2 Globulin 0.8 g/dL (0.5-0.9); Beta 1 Globulin 0.5 g/dL (0.4-0.6); Gamma Globulin 1.1 g/dL (0.8-1.7); Protein, Total 7.1 g/dL (6.1-8.1)
== END 2020-08-20 14:03 | disposition home or self-care (01) ==
LOC: ANHLAB 14:03
PROVIDERS: PCP Family Medicine; Visit Provider Internal Medicine Hematology & Oncology
DX: D64.9 Anemia, unspecified (principal); R79.89 Other specified abnormal findings of blood chemistry
CPT/HCPCS: 36415; 80048; 80053; 82728; 82784; 83540; 83550; 83615; 83883; 84155; 84165; 85025

== ENCOUNTER 2020-11-14 13:10 | Outpatient (CLI) | payer MEDICARE, OTHER, SELFPAY ==
[2020-11-14 13:26] LABS: Basophils Percent Auto 0.5 % (0.2-1.2); Eosinophils Absolute Auto 0.3 K/mm3 (0-0.3); Eosinophils Percent Auto 4.1 % (0-4.4); Hematocrit 38.3 % (42.0-52.0); Hemoglobin 12.8 g/dL (14.0-18.0); Immature Granulocyte Absolute 0.01 K/mm3 (0.00-0.031); Immature Granulocyte Percent A 0.2 % (0-0.5); Lymphocytes Absolute Auto 2.83 K/mm3 (0.9-3.2); Lymphocytes Percent Auto 46.5 % (18.3-44.2); Mean Corpuscular HGB Conc 33.4 g/dl (32-36); Mean Corpuscular Hemoglobin 33.2 pg (26-34); Mean Corpuscular Volume 99.5 fl (80-100); Mean Platelet Volume 9.3 fl (7.4-10.4); Monocytes Absolute Auto 0.8 K/mm3 (0.1-0.6); Monocytes Percent Auto 13.3 % (2.6-8.5); Neutrophils Absolute Auto 2.2 K/mm3 (1.3-6.7); Neutrophils Percent Auto 35.4 % (45.5-73.1); Platelet Count Result 206 k/mm3 (150-375); Red Blood Count 3.85 M/mm3 (4.6-6.20); Red Cell Distribution Width 14.6 % (11.5-14.5); White Blood Count 6.1 K/mm3 (4.5-10.0)
[2020-11-14 16:04] LABS: Iron 133 ug/dL (49-181)
[2020-11-14 16:06] LABS: Anion Gap 8 mmol/L (8-16); Blood Urea Nitrogen 32 mg/dL (9-20); Calcium 9.7 mg/dL (8.4-10.2); Carbon Dioxide 24 mmol/L (22-30); Chloride 106 mmol/L (98-107); Estimated Glomerular Filt Rate 54; Glucose 93 mg/dL (75-110); Potassium 4.8 mmol/L (3.4-5.0); Sodium 138 mmol/L (137-145)
[2020-11-14 16:14] LABS: Percent Iron Saturation 40 % (20-50)
== END 2020-11-14 13:11 | disposition home or self-care (01) ==
LOC: ANHLAB 13:12
PROVIDERS: PCP Family Medicine; Visit Provider Internal Medicine Hematology & Oncology
DX: D64.9 Anemia, unspecified (principal)
CPT/HCPCS: 36415; 80048; 82728; 83540; 83550; 85025

== ENCOUNTER 2021-04-19 11:18 | Outpatient (CLI) | payer MEDICARE, OTHER, SELFPAY ==
--- NOTE | ~2021-04-19 | XR_ITS ---
EXAMINATION: XR lumbar spine 2-3V DATE: 04/19/2021 11:41 INDICATION: Low back pain TECHNIQUE: Anteroposterior and lateral views of the lumbar spine, and cone-down lateral view of the l umbosacral junction were obtained. COMPARISON: CT, 03/07/2020 FINDINGS: There are 4 mm of unchanged retrolisthesis of L2 on L3. There is severe loss of interverteb ral disc space height at L2-3 and moderate loss of intervertebral disc space height at L3-4 and L5-S1 . The vertebral body heights are maintained. There is no fracture. There is moderate facet osteoarthr itis of the lower lumbar spine. Small degenerative osteophytes project from the anterior endplates of multiple vertebral bodies. IMPRESSION: 1. Severe lumbar spondylosis without acute findings or significant interval change. Reviewed, dictated and finalized at location A. IMPRESSION: 1. Severe lumbar spondylosis without acute findings or significant interval kasey nge.
== END 2021-04-19 11:19 | disposition home or self-care (01) ==
LOC: ANHIMG 11:21
PROVIDERS: PCP Family Medicine; Visit Provider Family Medicine
DX: G89.29 Other chronic pain (principal); M54.5 Low back pain; M47.816 Spondylosis without myelopathy or radiculopathy, lumbar region
CPT/HCPCS: 72100

== ENCOUNTER 2021-05-24 09:26 | Outpatient (CLI) | payer MEDICARE, OTHER, SELFPAY ==
[2021-05-24 09:55] LABS: Basophils Percent Auto 0.7 % (0.2-1.2); Eosinophils Absolute Auto 0.3 K/mm3 (0-0.3); Eosinophils Percent Auto 4.7 % (0-4.4); Hematocrit 37.4 % (42.0-52.0); Hemoglobin 12.5 g/dL (14.0-18.0); Immature Granulocyte Absolute 0.01 K/mm3 (0.00-0.031); Immature Granulocyte Percent A 0.2 % (0-0.5); Lymphocytes Absolute Auto 2.21 K/mm3 (0.9-3.2); Lymphocytes Percent Auto 36.9 % (18.3-44.2); Mean Corpuscular HGB Conc 33.4 g/dl (32-36); Mean Corpuscular Volume 101.6 fl (80-100); Mean Platelet Volume 9.4 fl (7.4-10.4); Monocytes Absolute Auto 0.7 K/mm3 (0.1-0.6); Monocytes Percent Auto 12.4 % (2.6-8.5); Neutrophils Absolute Auto 2.7 K/mm3 (1.3-6.7); Neutrophils Percent Auto 45.1 % (45.5-73.1); Platelet Count Result 219 k/mm3 (150-375); Red Blood Count 3.68 M/mm3 (4.6-6.20); Red Cell Distribution Width 13.5 % (11.5-14.5)
[2021-05-24 16:28] LABS: Alanine Aminotransferase 26 U/L (4-50); Albumin Level 4.2 g/dL (3.5-5.1); Alkaline Phosphatase 110 U/L (38-126); Anion Gap 10 mmol/L (8-16); Aspartate Amino Transferase 48 U/L (17-59); Bilirubin,Total 0.6 mg/dL (0.2-1.3); Blood Urea Nitrogen 23 mg/dL (9-20); Calcium 9.7 mg/dL (8.4-10.2); Carbon Dioxide 20 mmol/L (22-30); Chloride 105 mmol/L (98-107); Estimated Glomerular Filt Rate 54; Glucose 121 mg/dL (65-110); Lactate Dehydrogenase 453 U/L (313-618); Potassium 4.5 mmol/L (3.4-5.0); Sodium 135 mmol/L (137-145)
== END 2021-05-24 09:27 | disposition home or self-care (01) ==
LOC: ANHLAB 09:30
PROVIDERS: PCP Family Medicine; Visit Provider Internal Medicine Hematology & Oncology
DX: D64.9 Anemia, unspecified (principal)
CPT/HCPCS: 36415; 80053; 83615; 85025

== ENCOUNTER 2021-06-10 09:06 | Outpatient (CLI) | payer MEDICARE, OTHER, SELFPAY ==
--- NOTE | ~2021-06-10 | NM_ITS ---
EXAMINATION: NM bone scan whole body DATE: 06/10/2021 12:14 INDICATION: Prostate cancer TECHNIQUE: 24 mCi Tc-99m HDP was administered intravenously. Delayed whole-body scintigrams were obt ained. COMPARISON: Bone scan dated 01/05/[address] abdomen and pelvis dated 03/07/2020 FINDINGS: There is mild increased uptake in the mid right upper arm, unclear whether this represents bone or so ft tissue activity. Photopenic defects at both knees consistent with total knee arthroplasties with u nchanged mild increased uptake along the lateral side of the left femoral component. Mild likely dege nerative joint centered uptake at the bilateral acromioclavicular joints and at the right carpus. Add itional mild likely degenerative uptake at the L5-S1 disc space and severe lower lumbar facet joints. Additional facet osteoarthritis mild likely degenerative uptake at cervical facet joints at the left side of the upper cervical spine and right-sided the lower cervical spine. Absent left renal uptake which could be related to the severe hydronephrosis seen at the time of the prior CT or potentially s ubsequent nephrectomy. No other lesions suspicious for metastatic disease. IMPRESSION: 1. Increased uptake at the mid right upper arm, unclear whether bone or soft tissue activity. Recomme nd right humeral radiographs for correlation. 2. Absent left renal activity which could be due to severe hydronephrosis as seen on prior CT or inte rval nephrectomy. Correlate with clinical history. 3. Typical distribution of scattered degenerative joint and disc centered uptake as detailed above. Reviewed, dictated and finalized at location A. IMPRESSION: 1. Increased uptake at the mid right upper arm, unclear whether bone or soft ti ssue activity. Recommend right humeral radiographs for correlation. 2. Absent left renal activity which could be due to severe hydronephrosis as se en on prior CT or interval nephrectomy. Correlate with clinical history. 3. Typical distribution of scattered degenerative joint and disc centered uptak e as detailed above.
== END 2021-06-10 09:07 | disposition home or self-care (01) ==
LOC: ANHIMG 09:12
PROVIDERS: PCP Family Medicine; Visit Provider Internal Medicine Hematology & Oncology
DX: Z85.46 Personal history of malignant neoplasm of prostate (principal)
CPT/HCPCS: 78306; A9561

== ENCOUNTER 2022-02-28 14:43 | Outpatient (CLI) | payer MEDICARE, OTHER, SELFPAY ==
[2022-02-28 15:03] LABS: Basophils Percent Auto 0.7 % (0.2-1.2); Eosinophils Absolute Auto 0.2 K/mm3 (0-0.3); Eosinophils Percent Auto 2.6 % (0-4.4); Hematocrit 28.5 % (42.0-52.0); Hemoglobin 8.7 g/dL (14.0-18.0); Immature Granulocyte Absolute 0.02 K/mm3 (0.00-0.031); Immature Granulocyte Percent A 0.3 % (0-0.5); Lymphocytes Absolute Auto 1.93 K/mm3 (0.9-3.2); Lymphocytes Percent Auto 33.5 % (18.3-44.2); Mean Corpuscular HGB Conc 30.5 g/dl (32-36); Mean Corpuscular Hemoglobin 27.6 pg (26-34); Mean Corpuscular Volume 90.5 fl (80-100); Mean Platelet Volume 8.8 fl (7.4-10.4); Monocytes Absolute Auto 0.7 K/mm3 (0.1-0.6); Monocytes Percent Auto 12.2 % (2.6-8.5); Neutrophils Absolute Auto 2.9 K/mm3 (1.3-6.7); Neutrophils Percent Auto 50.7 % (45.5-73.1); Platelet Count Result 274 k/mm3 (150-375); Red Blood Count 3.15 M/mm3 (4.6-6.20); Red Cell Distribution Width 14.9 % (11.5-14.5); White Blood Count 5.8 K/mm3 (4.5-10.0)
[2022-02-28 16:22] LABS: Alanine Aminotransferase 20 U/L (6-50); Albumin Level 4.5 g/dL (3.5-5.1); Alkaline Phosphatase 89 U/L (38-126); Anion Gap 11 mmol/L (8-16); Aspartate Amino Transferase 34 U/L (17-59); Bilirubin,Total 0.3 mg/dL (0.2-1.3); Blood Urea Nitrogen 27 mg/dL (9-20); Calcium 9.5 mg/dL (8.4-10.2); Carbon Dioxide 26 mmol/L (22-30); Chloride 105 mmol/L (98-107); Estimated Glomerular Filt Rate 45; Glucose 124 mg/dL (65-110); Lactate Dehydrogenase 442 U/L (313-618); Potassium 4.8 mmol/L (3.4-5.0); Sodium 142 mmol/L (137-145)
== END 2022-02-28 14:44 | disposition home or self-care (01) ==
LOC: ANHLAB 14:46
PROVIDERS: PCP Family Medicine; Visit Provider Internal Medicine Hematology & Oncology
DX: D64.9 Anemia, unspecified (principal)
CPT/HCPCS: 36415; 80053; 83615; 85025

== ENCOUNTER 2022-03-03 14:38 | Outpatient (CLI) | payer MEDICARE, OTHER, SELFPAY ==
[2022-03-03 15:01] LABS: Hematocrit 26.6 % (42.0-52.0); Hemoglobin 8.4 g/dL (14.0-18.0); Mean Corpuscular HGB Conc 31.6 g/dl (32-36); Mean Corpuscular Hemoglobin 28.1 pg (26-34); Mean Platelet Volume 9.3 fl (7.4-10.4); Platelet Count Result 268 k/mm3 (150-375); Red Blood Count 2.99 M/mm3 (4.6-6.20); Red Cell Distribution Width 14.8 % (11.5-14.5); White Blood Count 5.7 K/mm3 (4.5-10.0)
[2022-03-03 15:25] LABS: Lactate Dehydrogenase 414 U/L (313-618)
[2022-03-03 15:51] LABS: Iron 18 ug/dL (49-181)
[2022-03-03 15:54] LABS: Prostate Specific Antigen 7.1 ng/mL (< OR = 4.0)
[2022-03-03 16:00] LABS: Percent Iron Saturation 4 % (20-50)
[2022-03-03 16:24] LABS: Ferritin 8.72 ng/mL (11.1-264)
== END 2022-03-03 14:39 | disposition home or self-care (01) ==
PROVIDERS: PCP Family Medicine; Visit Provider Internal Medicine Hematology & Oncology
DX: D64.9 Anemia, unspecified (principal); Z85.46 Personal history of malignant neoplasm of prostate
CPT/HCPCS: 36415; 82607; 82728; 83540; 83550; 83615; 84153; 85027

== ENCOUNTER 2022-03-10 08:21 | Outpatient (CLI) | payer MEDICARE, OTHER, SELFPAY ==
--- NOTE | ~2022-03-10 | NM_ITS ---
NM bone scan whole body DATE: 03/10/2022 12:05 INDICATION: Prostate cancer TECHNIQUE: Routine anterior and posterior delayed static images of the whole skeleton following intra venous injection of 22 mCi 99m technetium MDP COMPARISON: 06/10/2021 radionuclide bone scan FINDINGS: No left renal activity is noted, unchanged since 06/10/2021. Right renal activity is detecte d. There are foci of increased uptake of the cervical, thoracic and lumbar spine which are likely degen erative, relatively stable since 06/10/2021. Status post bilateral total knee arthroplasty. No interval abnormal skeletal uptake is noted since 06/10/2021 IMPRESSION: No significant change since 06/10/2021 Reviewed, dictated and finalized at Location [facility]. Reviewed, dictated and finalized at location B.
== END 2022-03-10 08:22 | disposition home or self-care (01) ==
PROVIDERS: PCP Family Medicine; Visit Provider Internal Medicine Hematology & Oncology
DX: Z85.46 Personal history of malignant neoplasm of prostate (principal)
CPT/HCPCS: 78306; A9561

== ENCOUNTER 2022-06-09 08:04 | Outpatient (CLI) | payer MEDICARE, OTHER, SELFPAY ==
[2022-06-09 19:20] LABS: Hemoglobin A1C 5.3 % (<5.7)
[2022-06-09 19:23] LABS: Cholesterol 178 mg/dL (0-200); HDL Direct 31 mg/dL; Triglycerides 191 mg/dL (<150)
[2022-06-09 19:35] LABS: LDL Cholesterol Direct 93 mg/dL
[2022-06-09 22:06] LABS: Vitamin D 25 Hydroxy 76.1 ng/mL
== END 2022-06-09 08:05 | disposition home or self-care (01) ==
PROVIDERS: PCP Family Medicine; Visit Provider Family Medicine
DX: R73.03 Prediabetes (principal); E55.9 Vitamin D deficiency, unspecified; I10 Essential (primary) hypertension; E78.5 Hyperlipidemia, unspecified
CPT/HCPCS: 36415; 80061; 82306; 83036; 84443

== ENCOUNTER 2022-10-15 21:30 | Outpatient (NON) | payer MEDICARE, OTHER, SELFPAY | END 2022-10-15 21:31 | disposition home or self-care (01) | PROVIDERS: PCP Family Medicine; Visit Provider Nurse Practitioner | DX: R39.9 Unspecified symptoms and signs involving the genitourinary system (principal) | CPT/HCPCS: 87077; 87086; 87186 ==

== ENCOUNTER 2023-05-04 08:39 | Outpatient (CLI) | payer MEDICARE, OTHER, SELFPAY ==
[2023-05-04 11:42] LABS: Basophils Percent Auto 0.6 % (0.2-1.2); Eosinophils Absolute Auto 0.2 K/mm3 (0-0.3); Eosinophils Percent Auto 3.3 % (0-4.4); Hematocrit 40.9 % (42.0-52.0); Hemoglobin 13.9 g/dL (14.0-18.0); Immature Granulocyte Absolute 0.02 K/mm3 (0.00-0.031); Immature Granulocyte Percent A 0.4 % (0-0.5); Lymphocytes Absolute Auto 1.89 K/mm3 (0.9-3.2); Lymphocytes Percent Auto 39.3 % (18.3-44.2); Mean Corpuscular Hemoglobin 36.4 pg (26-34); Mean Corpuscular Volume 107.1 fl (80-100); Mean Platelet Volume 9.9 fl (7.4-10.4); Monocytes Absolute Auto 0.5 K/mm3 (0.1-0.6); Monocytes Percent Auto 10.8 % (2.6-8.5); Neutrophils Absolute Auto 2.2 K/mm3 (1.3-6.7); Neutrophils Percent Auto 45.6 % (45.5-73.1); Platelet Count Result 236 k/mm3 (150-375); Red Blood Count 3.82 M/mm3 (4.6-6.20); Red Cell Distribution Width 12.6 % (11.5-14.5); White Blood Count 4.8 K/mm3 (4.5-10.0)
[2023-05-04 11:49] LABS: Alanine Aminotransferase 18 U/L (6-50); Albumin Level 4.4 g/dL (3.5-5.1); Alkaline Phosphatase 111 U/L (38-126); Anion Gap 8 mmol/L (8-16); Aspartate Amino Transferase 31 U/L (17-59); Bilirubin,Total 0.7 mg/dL (0.2-1.3); Blood Urea Nitrogen 21 mg/dL (9-20); Calcium 9.8 mg/dL (8.4-10.2); Carbon Dioxide 25 mmol/L (22-30); Chloride 104 mmol/L (98-107); Cholesterol 199 mg/dL (0-200); Estimated Glomerular Filt Rate > 60; Glucose 114 mg/dL (65-110); HDL Direct 34 mg/dL; Potassium 4.1 mmol/L (3.4-5.0); Sodium 137 mmol/L (137-145); Triglycerides 240 mg/dL (<150)
[2023-05-04 11:58] LABS: LDL Cholesterol Direct 109 mg/dL
[2023-05-04 11:59] LABS: Iron 138 ug/dL (49-181)
[2023-05-04 12:13] LABS: Percent Iron Saturation 42 % (20-50)
[2023-05-04 12:14] LABS: Vitamin D 25 Hydroxy 59.5 ng/mL
[2023-05-04 12:55] LABS: Folic Acid 10.5 ng/mL (2.76->20); Vitamin B12 > 1000.0 pg/mL (239-931)
[2023-05-04 12:57] LABS: Hemoglobin A1C 5.3 % (<5.7)
== END 2023-05-04 08:40 | disposition home or self-care (01) ==
LOC: ANHGOSHLAB 08:41
PROVIDERS: PCP Family Medicine; Visit Provider Family Medicine
DX: D50.9 Iron deficiency anemia, unspecified (principal); G43.919 Migraine, unspecified, intractable, without status migrainosus; E78.5 Hyperlipidemia, unspecified; E11.9 Type 2 diabetes mellitus without complications; I10 Essential (primary) hypertension; Z00.00 Encounter for general adult medical examination without abnormal findings; E55.9 Vitamin D deficiency, unspecified; E53.8 Deficiency of other specified B group vitamins
CPT/HCPCS: 36415; 80053; 80061; 82306; 82607; 82728; 82746; 83036; 83540; 83550; 84443; 85025

== ENCOUNTER 2023-07-24 13:47 | Outpatient (CLI) | payer MEDICARE, OTHER, SELFPAY ==
[2023-07-24 14:04] LABS: Basophils Percent Auto 0.5 % (0.2-1.2); Eosinophils Absolute Auto 0.2 K/mm3 (0-0.3); Eosinophils Percent Auto 2.8 % (0-4.4); Hematocrit 38.4 % (42.0-52.0); Hemoglobin 12.8 g/dL (14.0-18.0); Immature Granulocyte Absolute 0.02 K/mm3 (0.00-0.031); Immature Granulocyte Percent A 0.3 % (0-0.5); Lymphocytes Absolute Auto 2.35 K/mm3 (0.9-3.2); Lymphocytes Percent Auto 36.7 % (18.3-44.2); Mean Corpuscular HGB Conc 33.3 g/dl (32-36); Mean Corpuscular Hemoglobin 35.4 pg (26-34); Mean Corpuscular Volume 106.1 fl (80-100); Mean Platelet Volume 8.9 fl (7.4-10.4); Monocytes Absolute Auto 0.9 K/mm3 (0.1-0.6); Monocytes Percent Auto 13.6 % (2.6-8.5); Neutrophils Percent Auto 46.1 % (45.5-73.1); Platelet Count Result 237 k/mm3 (150-375); Red Blood Count 3.62 M/mm3 (4.6-6.20); Red Cell Distribution Width 12.5 % (11.5-14.5); White Blood Count 6.4 K/mm3 (4.5-10.0)
[2023-07-24 16:20] LABS: Iron 78 ug/dL (49-181)
[2023-07-24 16:30] LABS: Percent Iron Saturation 26 % (20-50)
== END 2023-07-24 13:48 | disposition home or self-care (01) ==
PROVIDERS: PCP Family Medicine; Visit Provider Internal Medicine Hematology & Oncology
DX: D50.9 Iron deficiency anemia, unspecified (principal)
CPT/HCPCS: 36415; 82728; 83540; 83550; 85025

== ENCOUNTER 2023-09-09 13:33 | Outpatient (CLI) | payer MEDICARE, OTHER, SELFPAY ==
[2023-09-09 20:00] LABS: Appearance Urine Clear (Clear); Bacteria Urine None Seen /hpf; Bilirubin Urine Negative (Negative); Blood Urine Trace (Negative); Color Urine Yellow (Yellow); Glucose Urine UA Negative (Negative); Ketones Urine Negative (Negative); Leukocyte Esterase Ur Negative LEU/UL (Negative); Nitrate Urine Negative (Negative); Non Pathogenic Casts 0-2; Protein Urine Trace mg/dL (Negative); RBC Urine 0-2 /hpf (0-2); Specific Grav Ur 1.006 (1.001-1.035); Squamous Epithelial Cell Urine None seen /hpf (Few); Urobilinogen Urine 0.2 mg/dL (<2.0); WBC Urine 0-5 /hpf
[2023-09-09 20:02] LABS: Add Urine Microscopic? YES
== END 2023-09-09 13:34 | disposition home or self-care (01) ==
PROVIDERS: PCP Family Medicine; Visit Provider Nurse Practitioner Family
DX: R35.0 Frequency of micturition (principal)
CPT/HCPCS: 81001

== ENCOUNTER 2023-12-08 12:06 | Outpatient (CLI) | payer MEDICARE, OTHER, SELFPAY ==
--- NOTE | ~2023-12-08 | PE_ITS ---
EXAMINATION: PET_PETPSMAST_PT DATE: 12/08/2023 14:57 INDICATION: Prostate cancer TECHNIQUE: 8.618 mCi of pipflufolastat F-18 (18-F-DCFPyL) was administered i.v. Low dose computed to mography (CT) images were acquired from the base of the brain to the base of the brain to the proxima l thighs for attenuation correction and anatomic localization. Positron emission tomography (PET) satinder ges were acquired in the same distribution beginning 101 minutes after injection. Images including fu sed PET/CT images were reconstructed in axial, coronal, and sagittal planes. Automated exposure contr ol technique was employed. The dose-length product was 594.88mGy-cm. COMPARISON: None FINDINGS: Head/neck: Typical pattern of symmetric physiologic increased activity in the lacrimal, parotid and submandibula r glands as well as along the mucosa of the nasal and oral cavities, the renny-, naso- and hypopharynx, the glottis and esophagus. No pathologically enlarged cervical lymphadenopathy or suspicious foci of increased uptake in the visualized head or neck. Chest: Mild dependent atelectasis in bilateral lower lobes. No suspicious pulmonary nodules, pneumonia, pulm onary edema or pleural effusion. Heart size is normal. Atherosclerotic coronary artery calcification. No pericardial effusion. Thoracic aorta is normal in caliber with no dissection. No pathologically e nlarged or PSMA avid thoracic lymphadenopathy. Moderate-sized sliding-type hiatal hernia. Abdomen/pelvis/proximal thighs: Status post prostatectomy with a few surgical clips in the deep pelvis. Physiologic renal accumulatio n and excretion of activity in the right kidneys, bladder and along portions of right ureter. Small f ocus of likely treated urinary activity along the proximal penile urethra. A couple right renal cysts the largest a 5.7 cm exophytic cyst at the lower pole. There is severe left hydroureteronephrosis ex tending to the region of the left ureterovesicular junction where there is an approximately 3.3 x 2.5 cm soft tissue density mass with maximal SUV of 29.9. Secondary severe left renal atrophy with only minimal left renal PSMA activity. There is a second 5.1 x 3.1 cm PSMA avid soft tissue density in the right posterior pelvis located caudal to the branches of the right internal iliac artery with yvonne l SUV of 21.6. Normal degree and slightly heterogenous pattern of increased uptake throughout the mimi er and spleen without radiologic correlate or dominant PSMA avid lesion. The gallbladder, pancreas an d bilateral adrenal glands are normal. Moderate uptake scattered throughout the bowels with typical d uodenal and proximal jejunal predominance and without radiologic correlate, also likely physiologic. Normal appendix. No other abnormal foci of increased uptake or pathologically enlarged lymphadenopath y in the abdomen, pelvis or proximal thighs. Musculoskeletal: Severe spondylosis in the cervical through the lumbar spine. A couple tiny bone islands in the bilate ral proximal femurs. No suspicious lytic, blastic or abnormally PSMA avid bone lesions to suggest met astatic disease. IMPRESSION: 1. A couple PSMA avid masses in the deep left and right pelvis consistent with metastatic disease. On the left this located near the ureterovesicular junction and obstructs the left ureter with severe l eft hydroureteronephrosis and severe left renal atrophy. No other more remote metastatic disease. 2. Moderate-sized sliding-type hiatal hernia. Reviewed, dictated and finalized at location A. IMPRESSION: 1. A couple PSMA avid masses in the deep left and right pelvis consistent with metastatic disease. On the left this located near the ureterovesicular junction and obstructs the left ureter with severe left hydroureteronephrosis and sever e left renal
== END 2023-12-08 12:07 | disposition home or self-care (01) ==
PROVIDERS: PCP Family Medicine; Visit Provider Urology
DX: C61 Malignant neoplasm of prostate (principal); K44.9 Diaphragmatic hernia without obstruction or gangrene
CPT/HCPCS: 78815; A9595

== ENCOUNTER 2023-12-21 08:25 | Outpatient (CLI) | payer MEDICARE, OTHER, SELFPAY ==
--- NOTE | 2023-12-21 09:01 | ECG_ITS ---
Measurements Intervals [place] Rate: 82 P: 25 UT: 157 QRS: 2 QRSD: 80 T: -4 QT: 358 QTc: 397 Interpretive Statements SINUS RHYTHM NORMAL ECG SEE SCANNED COPY FOR SIGNATURE MTDD
[2023-12-21 09:36] LABS: Prothrombin Time 13.4 Seconds (11.1-14.7)
[2023-12-21 09:37] LABS: Anion Gap 5 mmol/L (4-12); Blood Urea Nitrogen 21 mg/dL (9-20); Calcium 10.1 mg/dL (8.4-10.2); Carbon Dioxide 25 mmol/L (22-30); Chloride 104 mmol/L (98-107); Estimated Glomerular Filt Rate > 60; Glucose 119 mg/dL (65-110); Partial Thromboplastin Time 25.2 Seconds (22.3-36.8); Potassium 4.6 mmol/L (3.4-5.0); Sodium 134 mmol/L (137-145)
== END 2023-12-21 08:26 | disposition home or self-care (01) ==
LOC: ANHSURGERY 08:29
PROVIDERS: Anesthesiology; PCP Family Medicine; Visit Provider Urology
DX: Z01.818 Encounter for other preprocedural examination (principal); E78.00 Pure hypercholesterolemia, unspecified; N18.30 Chronic kidney disease, stage 3 unspecified
CPT/HCPCS: 36415; 80048; 85610; 85730; 93005

== ENCOUNTER 2023-12-22 01:40 | Day surgery (SDC) | payer MEDICARE, OTHER, SELFPAY ==
[2023-12-18 15:22] VITALS: BMI 25.7
--- NOTE | 2023-12-18 15:34 | PC.NURSE ---
PRE-OP INSTRUCTIONS, PLEASE READ CAREFULLY Report to the Outpatient Waiting Room, entrance under the green pavilion located off [facility], at time _1015_ on date _12/22/23_. Planned Procedure Time: _1215_. Time changes happen often and if your time is changed the preop area will call you the afternoon before. - You and your visitor will be asked to self-screen and do not enter if you have any COVID symptoms. - A mask is optional within the hospital at this time. Patients may have clear liquids (water, carbonated beverages, clear teas, apple juice) until 3 hours prior to surgery (0915 AM) with a maximum of 20 ounces. - No food from midnight until time of surgery Take the following medications with a SIP of water the morning of surgery: _VALACYCLOVIR_ DO NOT STOP ANY OF YOUR OTHER PRESCRIPTION MEDICATIONS PRIOR TO SURGERY ?EXCEPT THE FOLLOWING Medications to discontinue -_ELIQUIS, BUTALBITAL/ASPIRIN/CAFFEINE INSTRUCTED BY DR. VIZCAINO_, Medications to discontinue per ANESTHESIA - PROBIOTIC 3 DAYS PRIOR TO SURGERY, Date to take last dose 12/18/23_ Please no make-up, nail russian, hairspray, perfume, deodorant, or body powder the day of surgery. No jewelry (including any body piercings) or valuables the day of surgery, leave them at home. Please take a shower or bath the night before, or the morning of, surgery with an antibacterial soap. Wear comfortable, loose fitting clothing. - Jewelry must be removed prior to entering the operating room. Rings and piercings that are not removed may be cut off. - The hospital will not accept responsibility for valuables. - Please leave all valuables, including medications, at home the day of surgery. If you are going home after surgery, a licensed semi driver must drive you home. - NO public transportation without another adult if you receive anesthesia. - We recommend that an adult stay with you for 24 hours following discharge. - We also recommend that you do not drive, make important decision, drink alcoholic beverages, or take any drugs that were not prescribed by your health care provider for at least 24 hours after your discharge time. Follow any additional instructions given to you from your surgeon. If you or anyone in your household have experienced Covid symptoms in the past week, please notify your surgeon or the nurse liaison at the phone number below for possible testing. Telephone instructions given to _PATIENT_and asked if any additional questions and then verbalized understanding. Patient advised to call surgeon office or pre surgery nurse liaison [phone] if any additional questions.
[2023-12-22] VITALS (9 sets, daily range): BP systolic 133–153; BP diastolic 76–95; PULSE 70–93; RESP 12–20; TEMP 36.6–36.9; O2SAT 98–100; BMI 24.9
--- NOTE | ~2023-12-22 | XR_ITS ---
EXAMINATION: XR retrograde pyelo w/stent LT DATE: 12/22/2023 15:18 CDT INDICATION: Left ureteral dilation TECHNIQUE: Multiple fluoroscopic images from a [left retrograde pyelogram are submitted for review.] FINDINGS: There is a dilated tortuous left ureter opacified partially by contrast. The left renal pel vis appears dilated. Catheter extends into the renal collecting system. IMPRESSION: 1. Moderate dilation of the left ureter which is tortuous.. Correlate with real time procedural find ings for details. Reviewed, dictated and finalized at location A. IMPRESSION: 1. Moderate dilation of the left ureter which is tortuous.. Correlate with antoni l time procedural findings for details.
--- NOTE | 2023-12-22 09:12 | WPDHPUPDATE1 ---
History and Physical Update Update Date/Time: 12/22/23 09:12 History and Physical has been reviewed, including an updated exam of the patient. There are NO changes in the patient's condition. Risks, benefits, and alternatives have been discussed and questions answered. Patient agrees to proceed with procedure. Proceed with cystoscopy, urethral dilation, left retrograde pyelogram, left ureteral stent placement, possible bladder biopsy with fulguration
[2023-12-22] MEDS: LACTATED RINGERS 1,000 ML 30 ML IV CONT (10:50)
--- NOTE | 2023-12-22 11:05 | WPDANESEPPF ---
Anes - Initial Pre Proc Eval Procedure: Operation Date: 12/22/23 12:15 Proposed Procedures p Cystoscopy, Urethral Dilation, Left Retrograde Pyelogram, Left Stent Placement, Possible Bladder Biopsy with Fulguration - Suresh Flores MD Date/Time: 12/22/23 11:05 Surgeon: Suresh Flores MD Pre Op Diagnosis: Bladder Mass, Hydronephrosis Patient Data Age: 78 Gender: M Height: 1.75 m Weight: 76.45 kg Last Vital Signs Temp 98.4 F 12/22/23 10:16 Pulse 93 12/22/23 10:16 Resp 14 12/22/23 10:16 BP 133/95 H 12/22/23 10:16 Pulse Ox 98 12/22/23 10:16 O2 Del Method Room Air 12/22/23 10:16 Allergies Allergy/AdvReac Type Severity Reaction Status Date / Time Sulfa (Sulfonamide Allergy Unknown Other- as Verified 12/22/23 10:59 Antibiotics) a child Home Medications Medication Instructions Recorded Confirmed Type calcium carbonate 600 mg calcium 600 mg PO DAILY PRN Acid Reflux 03/05/20 12/18/23 History (1,500 mg) tablet (Calcium) vitamin B complex (B 1 tablet PO DAILY 03/05/20 12/22/23 History Complex-Vitamin B12 tablet) enzalutamide 40 mg tablet (Xtandi) 160 mg PO DAILY 04/15/23 12/18/23 History atorvastatin 10 mg tablet 10 mg PO QHS #90 tabs 08/31/23 12/18/23 Rx valacyclovir 1 gram tablet 1,000 mg PO DAILY #90 tabs 10/26/23 12/18/23 Rx tnmfvuogvz-jsaulkp-sdsmrumq 50 1 cap PO Q6H PRN pain #60 caps 10/28/23 12/18/23 Rx mg-325 mg-40 mg capsule Probiotic 1 cap DAILY 12/18/23 12/22/23 History apixaban 2.5 mg tablet (Eliquis) 2.5 mg PO DAILY 12/18/23 12/18/23 History Patient hx anesthesia problems: none Family hx anesthesia problems: none Results Review: All pre-operative results and documents have been reviewed as part of the pre-operative evaluation. [facility] Past Medical History Medical History Atrophy of left kidney Chronic low back pain Chronic neck and back pain CKD (chronic kidney disease) stage 3, GFR 30-59 ml/min (~07/09/17) Diverticulitis Dyslipidemia Elevated lipids Essential (primary) hypertension Hematuria, gross History of deep venous thrombosis (DVT) of distal vein of right lower extremity 2017 History of prostate cancer Intractable migraine without status migrainosus Prediabetes Recurrent genital herpes Unspecified osteoarthritis, unspecified site Venous thromboembolism pulmonary embolism - 03/03 right lower extremity DVT in 2017 Vitamin D deficiency Surgical History Surgical History History of bilateral knee replacement 2002 History of prostatectomy (~2003) 2003 Hx of arthroscopy of right knee Hx of left inguinal hernia repair (~2016) 04/2017 Family History Family History Mother Acute myocardial infarction Congestive heart failure Other Family history of coronary artery disease Social History Social History Smoking packs per day: 0.5 Smoking cigarettes per day: 10.0 Years smoked: 1.5 Smoking pack-years: 0.75 Smoking status: Former smoker Tobacco type: cigarettes Second hand tobacco smoke exposure: Yes Smoking end date: 09/14/67 Alcohol intake: current Alcohol use details: MAYBE 1 BEER / 6 MONTHS Substance use: never Substance use type: does not use Lack of Transportation: No Lack of Food: Never True Current Housing: I Have Housing Concerned About Future Housing: No Difficulty Paying Gas/Electric Bills: No Difficulty Paying for Meds: No Currently Unemployed: No Education: High School Diploma/GED Difficulty w/ Childcare or Family Care: No Living arrangements: with family Gender identity (if verbalized by the patient): Male Spiritual care concerns: No Anes - Eval Final PreProcedure Day of Procedure 12/22/23 11:05 Patient weight: normal
[2023-12-22] MEDS: ceFAZolin 2 GM/D5W 50 ML 2 GM/50 ML BAG IVPB (11:55)
--- NOTE | 2023-12-22 12:19 | W.PM.PROC2 ---
Procedure Note - Detailed Date of Procedure 12/22/23 Pre-op Diagnosis Bladder Mass, Hydronephrosis, meatal stenosis Post-op Diagnosis Same Procedure Performed Urethral dilation, cystoscopy with bladder biopsy and fulguration, left retrograde pyelogram, left ureteral stent placement 6 [place] contour Surgeon Suresh Flores MD Anesthesia General Findings Obstructed left UVJ most likely secondary to extrinsic mass. Description of Procedure Patient is taken to the operative suite correctly identified. Once anesthesia was obtained was placed in dorsal lithotomy position and prepped and draped usual sterile fashion. He does have a hypospadias and we dilated the meatus up to 24 [place]. Twenty-two [place] scope was inserted. There were no urethral strictures. Prostate is absent. Upon entering the bladder has some typical post radiation changes. There was an area that is slightly raised on the left floor just distal to the left ureteral orifice this was biopsied with a cold cup in fulgurated. The right ureteral orifice was effluxing clear urine. The left ureteral orifice was extremely tight and I did not see any efflux. I was able to manipulate a guidewire into it and do a pyelogram. He has extremely tortuous ureter. I was able to manipulate a Sensor wire up into the kidney and with gentle manipulation of the wire I was able to straighten things out. A ureteral catheter was then passed all the way into the kidney. I drained about 360 cc of dark colored urine. I will sent some for cytology and culture. Pyelogram that confirms extremely dilated left pelvis. Six [place] contour stent was then placed with the proximal end coiled in the renal pelvis and distal in the bladder. The orifice was too tight to even attempt to insert a ureteral scope at this time. 2% viscous lidocaine was inserted urethra patient is taken recovery stable condition. I will plan on obtaining a renal scan in approximately 3-4 weeks. This completes dictation. Please send a copy of op note to my office. Estimated Blood Loss 0 Drains Yes Packing No Pathology Yes Complications No immediate complications Condition Stable Disposition PACU
[2023-12-22] MEDS: hydrOXYzine HCL 10 MG TABLET PO (13:56)
== END 2023-12-22 14:35 | disposition home or self-care (01) ==
PROVIDERS: PCP Family Medicine; Visit Provider Urology
PROC: (CPT 52352; principal; 2023-12-22 12:15)
DX: N30.20 Other chronic cystitis without hematuria (principal); N13.30 Unspecified hydronephrosis; N35.911 Unspecified urethral stricture, male, meatal; I12.9 Hypertensive chronic kidney disease with stage 1 through stage 4 chronic kidney disease, or unspecified chronic kidney disease; N18.30 Chronic kidney disease, stage 3 unspecified; E78.5 Hyperlipidemia, unspecified; R73.03 Prediabetes; Z79.01 Long term (current) use of anticoagulants; Z85.46 Personal history of malignant neoplasm of prostate; Z86.718 Personal history of other venous thrombosis and embolism; Z86.711 Personal history of pulmonary embolism; Z87.891 Personal history of nicotine dependence
CPT/HCPCS: 52332; 74420; 87086; 88108; 88305; A9270; C1758; C1769; C2617; J0690; J1100; J2704; J3010; J7120; Q9966

== ENCOUNTER 2024-01-04 16:04 | Outpatient (NON) | payer MEDICARE, OTHER, SELFPAY | END 2024-01-04 16:05 | disposition home or self-care (01) | LOC: ANHGOSHLAB 16:06 | PROVIDERS: PCP Family Medicine; Visit Provider Family Medicine | DX: R82.90 Unspecified abnormal findings in urine (principal) | CPT/HCPCS: 87077; 87086; 87088; 87186 ==

== ENCOUNTER 2024-01-18 11:33 | Outpatient (CLI) | payer MEDICARE, OTHER, SELFPAY ==
--- NOTE | ~2024-01-18 | NM_ITS ---
EXAMINATION: LUIS MANUEL umaña renal scan DATE: 01/18/2024 13:02 INDICATION: Left hydronephrosis. TECHNIQUE: 7.9 mCi Tc-99m MAG3 was administered IV. 40 mg furosemide was administered IV immediately afterward. The patient was scanned in the supine position. A posterior abdominal radionuclide angiog lorena was obtained. A subsequent time course of static images of the kidneys, ureters, and bladder was obtained. COMPARISON: Renal scan 03/07/2020, PET CT 12/08/2023 FINDINGS: The posterior abdominal radionuclide angiogram and sequential static images show severe lef t hydronephrosis. Peak renal parenchymal uptake was 2 min in right kidney and 29 min in left kidney ( normal peak 3-5 minutes). The relative early renal uptake was 94% on the right and 6% on the left (< 40% is abnormal). T1/2 for clearance of activity from the right kidney and proximal collecting system was 18 minutes. T1/2 for clearance of activity from the left kidney and proximal collecting system was not measured. IMPRESSION: 1. Chronic severe hydronephrosis and atrophy of left kidney, which contributes 6% of total renal fun ction. Reviewed, dictated and finalized at location A. IMPRESSION: 1. Chronic severe hydronephrosis and atrophy of left kidney, which contributes 6% of total renal function.
== END 2024-01-18 11:34 | disposition home or self-care (01) ==
LOC: ANHIMG 11:40
PROVIDERS: PCP Family Medicine; Visit Provider Urology
DX: N13.30 Unspecified hydronephrosis (principal); N26.1 Atrophy of kidney (terminal)
CPT/HCPCS: 78708; A9562; J1940

== ENCOUNTER 2024-05-10 10:00 | Outpatient (CLI) | payer MEDICARE, OTHER, SELFPAY ==
[2024-05-10 13:03] LABS: Alanine Aminotransferase 12 U/L (6-50); Albumin Level 4.2 g/dL (3.5-5.1); Alkaline Phosphatase 148 U/L (38-126); Anion Gap 10 mmol/L (4-12); Aspartate Amino Transferase 42 U/L (17-59); Bilirubin,Total 0.5 mg/dL (0.2-1.3); Blood Urea Nitrogen 18 mg/dL (9-20); Calcium 9.6 mg/dL (8.4-10.2); Carbon Dioxide 26 mmol/L (22-30); Chloride 99 mmol/L (98-107); Cholesterol 181 mg/dL (0-200); Estimated Glomerular Filt Rate > 60; Glucose 114 mg/dL (65-110); HDL Direct 36 mg/dL; Potassium 4.6 mmol/L (3.4-5.0); Sodium 135 mmol/L (137-145); Triglycerides 151 mg/dL (<150)
[2024-05-10 13:07] LABS: Basophils Percent Auto 0.8 % (0.2-1.2); Eosinophils Absolute Auto 0.5 K/mm3 (0-0.3); Eosinophils Percent Auto 9.6 % (0-4.4); Hematocrit 34.1 % (42.0-52.0); Immature Granulocyte Absolute 0.01 K/mm3 (0.00-0.031); Immature Granulocyte Percent A 0.2 % (0-0.5); Lymphocytes Absolute Auto 2.02 K/mm3 (0.9-3.2); Lymphocytes Percent Auto 40.3 % (18.3-44.2); Mean Corpuscular HGB Conc 32.3 g/dl (32-36); Mean Corpuscular Hemoglobin 29.7 pg (26-34); Mean Corpuscular Volume 92.2 fl (80-100); Mean Platelet Volume 9.1 fl (7.4-10.4); Monocytes Absolute Auto 0.6 K/mm3 (0.1-0.6); Monocytes Percent Auto 12.4 % (2.6-8.5); Neutrophils Absolute Auto 1.8 K/mm3 (1.3-6.7); Neutrophils Percent Auto 36.7 % (45.5-73.1); Platelet Count Result 309 k/mm3 (150-375); Red Cell Distribution Width 16.2 % (11.5-14.5)
[2024-05-10 13:15] LABS: LDL Cholesterol Direct 105 mg/dL
[2024-05-10 13:53] LABS: Vitamin B12 > 1000.0 pg/mL (239-931)
[2024-05-10 14:59] LABS: Hemoglobin A1C 5.8 % (<5.7)
[2024-05-10 15:56] LABS: Vitamin D 25 Hydroxy 50.1 ng/mL
== END 2024-05-10 10:01 | disposition home or self-care (01) ==
LOC: ANHGOSHLAB 10:02
PROVIDERS: PCP Family Medicine; Visit Provider Family Medicine
DX: E78.5 Hyperlipidemia, unspecified (principal); R73.03 Prediabetes; E53.8 Deficiency of other specified B group vitamins; D50.9 Iron deficiency anemia, unspecified; I10 Essential (primary) hypertension; E55.9 Vitamin D deficiency, unspecified
CPT/HCPCS: 36415; 80053; 80061; 82306; 82607; 83036; 84443; 85025

== ENCOUNTER 2024-08-10 11:04 | Outpatient (CLI) | payer MEDICARE, OTHER, SELFPAY ==
[2024-08-10 20:30] LABS: Basophils Percent Auto 0.8 % (0.2-1.2); Eosinophils Absolute Auto 0.3 K/mm3 (0-0.3); Eosinophils Percent Auto 5.1 % (0-4.4); Hemoglobin 10.5 g/dL (14.0-18.0); Immature Granulocyte Absolute 0.02 K/mm3 (0.00-0.031); Immature Granulocyte Percent A 0.4 % (0-0.5); Lymphocytes Absolute Auto 1.56 K/mm3 (0.9-3.2); Lymphocytes Percent Auto 30.8 % (18.3-44.2); Mean Corpuscular HGB Conc 31.8 g/dl (32-36); Mean Corpuscular Hemoglobin 30.3 pg (26-34); Mean Corpuscular Volume 95.1 fl (80-100); Mean Platelet Volume 9.6 fl (7.4-10.4); Monocytes Absolute Auto 0.9 K/mm3 (0.1-0.6); Monocytes Percent Auto 18.1 % (2.6-8.5); Neutrophils Absolute Auto 2.3 K/mm3 (1.3-6.7); Neutrophils Percent Auto 44.8 % (45.5-73.1); Platelet Count Result 318 k/mm3 (150-375); Red Blood Count 3.47 M/mm3 (4.6-6.20); Red Cell Distribution Width 15.5 % (11.5-14.5); White Blood Count 5.1 K/mm3 (4.5-10.0)
[2024-08-10 21:18] LABS: Iron 45 ug/dL (49-181)
[2024-08-10 21:30] LABS: Percent Iron Saturation 12 % (20-50)
== END 2024-08-10 11:05 | disposition home or self-care (01) ==
LOC: ANHGOSHLAB 11:05
PROVIDERS: PCP Family Medicine; Visit Provider Family Medicine
DX: D64.9 Anemia, unspecified (principal)
CPT/HCPCS: 36415; 82728; 83540; 83550; 85025

== ENCOUNTER 2024-09-30 13:42 | Outpatient (CLI) | payer MEDICARE, OTHER, SELFPAY ==
--- NOTE | ~2024-09-30 | PE_ITS ---
EXAMINATION: PET_PETPSMAST_PT DATE: 09/30/2024 15:52 INDICATION: Prostate cancer TECHNIQUE: 5.136 mCi of Illucix Ga-68([id number]) was administered i.v. Low dose computed daniel graphy (CT) images were acquired from the base of the brain to the base of the brain to the proximal thighs for attenuation correction and anatomic localization. Positron emission tomography (PET) image s were acquired in the same distribution beginning 81 minutes after injection. Images including fused PET/CT images were reconstructed in axial, coronal, and sagittal planes. Automated exposure control technique was employed. The dose-length product was 961.68mGy-cm. COMPARISON: 12/08/2023 FINDINGS: Head/neck: Typical pattern of symmetric physiologic increased activity in the lacrimal, parotid and submandibula r glands as well as along the mucosa of the nasal and oral cavities, pharynx and hypopharynx. No path ologically enlarged cervical lymphadenopathy or suspicious foci of increased uptake in the visualized head or neck. Chest: Prominent groundglass opacities in the dependent lungs likely due at least in part to atelectasis rel ated to expiratory phase of imaging although superimposed mild pulmonary edema or pneumonia not exclu dable. Heart size is normal. Atherosclerotic coronary artery calcification. No pericardial or pleural effusion. Thoracic aorta is normal in caliber. No pathologically enlarged or PSMA avid thoracic lymp hadenopathy. Moderate-sized sliding-type hiatal hernia. Abdomen/pelvis/proximal thighs: Status post prostatectomy with a few surgical clips the deep pelvis. Physiologic renal accumulation a nd excretion of activity in the right kidney, right ureter and bladder. Photopenic defects associated with fluid attenuation cysts in the right kidney the larger measuring 5.8 cm at the lower pole. Mariama re left hydroureteronephrosis without excreted activity which extends to a prominent PSMA PET avid ma ss in the left hemipelvis. There is severe left renal atrophy with no excreted activity within the di lated left renal collecting system and ureter. The mass in the left pelvis is unchanged measuring 3.3 x 2.5 cm with no interval change in separation of the surgical clips located on either side of the m ass. There has been slight decrease in the degree of PSMA uptake with maximal SUV of 17.4 relative to prior study of 29.9. A second PSMA abdomen the mass at the right posterior pelvis is also without si gnificant interval change measuring measuring 5.1 x 3.2 cm also slight decrease in maximal SUV value, previously 21.6, currently 17.4. Normal degree and slightly heterogenous pattern of increased uptake throughout the liver and spleen w ithout radiologic correlate or dominant PSMA avid lesion. The gallbladder, pancreas and bilateral adr enal glands are normal. Mild to moderate uptake scattered throughout the bowels with typical duodenal and proximal jejunal predominance and without radiologic correlate, also likely physiologic. No othe r abnormal foci of increased uptake or pathologically enlarged lymphadenopathy in the abdomen, pelvis or proximal thighs. Musculoskeletal: Severe spondylosis. No suspicious lytic, blastic or abnormally PSMA avid bone lesions to suggest meta static disease. IMPRESSION: 1. No interval change in size with slight decrease in still relatively significant PSMA uptake such w ith a couple masses in the deep left and right pelvis consistent with metastatic disease. No other me tastatic disease. 2. Chronic obstruction of the distal left ureter from the previous noted likely metastatic mass with secondary severe left hydroureteronephrosis and chronic severe left renal atrophy. 3. Moderate-sized sliding-type hernia. 4. Significant ground glass opacities in the dependent lungs most likely atelectasis related to expir atory physiologic although pulmonary edema or pneumonia is not excludable. Reviewed, dictated and finalized at location B. D DESIGNER IMPRESSION: 1. No interval change in size with slight decrease in still relatively signific ant PSMA uptake such with a couple masses in the deep left and right pelvis con sistent with metastatic disease. No other metastatic disease. 2. Chronic obstruction of the distal left ureter from the previous noted likely metastatic mass with secondary severe left hydroureteronephrosis and chronic s evere left renal atrophy. 3. Moderate-sized sliding-type hernia. 4. Significant ground glass opacities in the dependent lungs most likely atelec tasis related to expiratory physiologic although pulmonary edema or pneumonia i s not excludable.
== END 2024-09-30 13:43 | disposition home or self-care (01) ==
PROVIDERS: PCP Family Medicine; Visit Provider Urology
DX: R93.0 Abnormal findings on diagnostic imaging of skull and head, not elsewhere classified (principal); C61 Malignant neoplasm of prostate
CPT/HCPCS: 78815; A9596

== ENCOUNTER 2024-10-05 09:01 | Outpatient (CLI) | payer MEDICARE, OTHER, SELFPAY ==
[2024-10-05 20:18] LABS: Prostate Specific Antigen 27.1 ng/mL (< OR = 4.0)
[2024-10-10 17:24] LABS: Testosterone Total 13 ng/dL (250-1100)
== END 2024-10-05 09:02 | disposition home or self-care (01) ==
LOC: ANHGOSHLAB 09:02
PROVIDERS: PCP Family Medicine; Visit Provider Urology
DX: C61 Malignant neoplasm of prostate (principal)
CPT/HCPCS: 36415; 84153; 84403

== ENCOUNTER 2024-10-14 14:23 | Outpatient (CLI) | payer MEDICARE, OTHER, SELFPAY ==
--- OUTSIDE RECORDS SUMMARY | 2024-10-14 14:33 | XMS_ITS | Continuity of Care Document ---
Author Organization [facility] Address [address] [place] [address] utive [facility] [address] [place] [address] Phone Care Team Providers Care Assayer Name Role Phone Mihai Fischer Unavailable Unavailable Advance Directives Directive Yes / No Effective Date File Name No Information Encounters Encounter Description Practice Location Reason(s) For Visit Diagnoses Date Provider Providers Copied on Encounter [facility], [address] [place] [address] [address], [place], [place], [id number], [place] tel:[phone] [facility] No Information Sep-2 0-200 6 Am[address] Holm. [address] , [address], [place], [address], [place]. tel:[phone] Family History Family Member Type Diagnosis Age At Onset No Information Payers Payer name Insurance type Covered libertarian ID Authoriza tion(s) No Information Social History Type Description Quantity Date Captured Comments Sex Male Smoking Status No Information Chief Complaint And Reason For Visit No Information Reason For Referral Reason For Referral No Information History Of Present Illness Encounter Date Complaint History Of Prese nt Illness No Information Functional Status Date Functional Assessmen t No Information Instructions Date Instruction Additional Infor mation No Information Assessments Type Assessment Date No Information Patient Care Teams Name Effective Dates (start - stop) Status Members No Information
--- OUTSIDE RECORDS SUMMARY | 2024-10-14 14:33 | XMS_ITS | Clinical Summary ---
Author Organization [facility] Address [address], [address] [address] Phone Care Team Providers Care Land Management Forester Name Role Phone Caesar Mathews MD Primary Care Provider Popeye Padron DO Unavailable [phone] Allergies Active Allergy Reactions Criticality Noted Date Comments Sulfa Antibiotics Unknown 08/24/2017 Medications polyethylene glycol (MIRALAX) Powder Mix the entire bottle with 64 oz of a clear liquid. Use as directed by the office for colonoscopy prep. 255 g 7 Active atorvastatin (LIPITOR) 10 MG Tablet Take 1 Tab by mouth daily. 2 7 Active lisinopril (PRINIVIL, ZESTRIL) 10 MG Tablet Take 1 Tab by mouth daily. 6 7 Active valACYclovir (VALTREX) 1 GM Tablet Take 1 Tab by mouth daily. 3 7 Active butalbital-aspi rin-caffeine (FIORINAL) 50-325-40 MG Capsule Take 1 Cap by mouth daily. 1 7 Active aspirin EC (CLIVE ASPIRIN EC LOW DOSE) 81 MG Tablet Delayed Response Take 81 mg by mouth daily. Active Calcium Carbonate (CALCIUM 600 PO) Take 1 Tab by mouth daily. Active cyanocobalamin 1000 MCG Tablet Take 1,000 mcg by mouth daily. Active Family History Medical History Relation Name Comments Multiple Sclerosis Father Heart Disease Mother Relation Name Status Comments Father Mother Social History Tobacco Use Types Packs/Day Years Used Date Smoking Tobacco: Former Cigarettes 1 0.5 Smokeless Tobacco: Never Alcohol Use Standard Drinks/Week Comments Yes 0 (1 standard drink = 0.6 oz pur e alcohol) rare Sex and Gender Information Value Date Recorded Sex Assigned at Not on file Legal Sex Male 9:04 PM CDT Gender Identity Not on file Sexual Orientation Not on file Plan of Treatment Health Maintenance Due Date Last Done Comments Hepatitis C Virus (HCV) Screening 1945 TdaP Immunization 1945 Pneumococcal Immunization (5 0+ years) (1 of 1 - PCV) 1993 Zoster Immunization (1 of 2) 1993 Respiratory Syncytial Virus (RSV) Immunization (Adult) (1 - 1-dose 75+ series) 2018 Influenza Immunization (#1) 2024 SARS-COV-2 Immunization (2023- season) 2024 09/20/2021, 11/29/2020, 11/08/2020 Hepatitis B Immunization Aged Out No longer eligible based on patient's age to complete this topic Meningococcal Immunization (ACWY) Aged Out No longer eligible b ased on patient's age to complete this topic Rotavirus Immunization Aged Out No lo nger eligible based on patient's age to complete this topic Insurance MEDICARE Care Teams Land Management Forester Relationship Specialty Start Date End Date Caesar Mathews MD PCP - General Family Medicine 07/27/17 Popeye Padron DO Gastroenterology 07/27/17
--- OUTSIDE RECORDS SUMMARY | 2024-10-14 14:33 | XMS_ITS | Clinical Summary ---
Author Organization [facility] Address [address] [place] [address]. [place] [address] [place] [address] Care Team Providers Care Scanning Coordinator Name Role Phone None, Provider MD Primary Care Provider Unavaila ble Social History Tobacco Use Types Packs/Day Years Used Date Smoking Tobacco: Never Assessed Sex and Gender Information Value Date Recorded Sex Assigned at Not on file Legal Sex Male 5:51 PM CDT Gender Identity Not on file Sexual Orientation Not on file Plan of Treatment Health Maintenance Due Date Last Done Comments DTaP, Tdap and Td Vaccines ( 1 - Tdap) 1962 Zoster Vaccines (1 of 2) 1993 Pneumococcal Vaccine: 65+ Ye ars (1 of 1 - PCV) 2008 RSV Immunization or 60+ Years (1 - 1-dose 75+ series) 2018 COVID-19 Vaccine (2023-2 5 season) 2024 Influenza Adult (#1) 2024 Meningococcal B Vaccine Aged Out No l onger eligible based on patient's age to complete this topic Meningococcal Vaccine Aged Out No terry deanne eligible based on patient's age to complete this topic RSV Immunizations Under 20 Months Aged Out No longer eligible based on patient's age to complete this topic Care Teams Scanning Coordinator Relationship Specialty Start Date End Date None, Provider, PCP - General 06/14/19
--- OUTSIDE RECORDS SUMMARY | 2024-10-14 14:33 | XMS_ITS | Clinical Summary ---
Author Organization [facility] Fernanda Novoa Address [address] [place] [address] Care Team Providers Care Electric Organ Assembler And Checker Name Role Phone Caesar Mathews MD Primary Care Provider Allergies Active Allergy Reactions Criticality Noted Date Comments Sulfa (Sulfonamide Antibiotics) Unknown,Hives High 1 10/25/2016 Sulfamethoxazole-Trimethoprim Unknown 2019 Medications calcium carbonate (CALCIUM 600 ORAL) Take by mouth. Active cyanocobalamin, vitamin B-12, (VITAMIN B12 ORAL) Take by mouth. Active valACYclovir (VALTREX) 1 gram tablet Take 1,000 mg by mouth daily. Active atorvastatin (LIPITOR) 10 mg tablet Take 10 mg by mouth daily. Active lisinopriL (PRINIVIL) 10 mg tablet Take 10 mg by mouth daily. Active folic acid (FOLVITE) 1 mg tablet Take 1 Tablet (1 mg) by mouth daily. 30 Tablet 2 07/06/2020 Active aspirin-caffein e-butalbital (FIORINAL) 325-40-50 mg capsule TAKE 1 CAPSULE BY MOUTH EVERY 6 HOURS NEEDED FOR PAIN 05/07/2021 Active CALCIUM CARBONATE-VITAM IN D3 ORAL Take by mouth. Active Xtandi 40 mg Tablet Take 160 mg by mouth 4 times daily. 01/26/2023 Active apixaban (Eliquis) 5 mg tabletIndicatio ns:Personal history of DVT (deep vein thrombosis) TAKE 1/2 TABLET(2.5 MG) BY MOUTH TWICE DAILY 30 Tablet 3 01/29/2023 Active Active Problems Problem Noted Date Diagnosed Date Chronic anemia 03/03/2022 History of prostate cancer 06/27/2020 Personal history of DVT (deep vein thrombosis) 1 History of pulmonary embolism 06/27/2020 Hydronephrosis 06/27/2020 Encounters Date Type Department Care Team Description 10/06/2024 External Device Data STL ABSTRACTION Provider, Abstract from Last 3 Months Family History Medical History Relation Name Comments Heart Disease Mother Relation Name Status Comments Father Mother Sister Alive Social History Tobacco Use Types Packs/Day Years Used Date Smoking Tobacco: Former Cigarettes Q uit: 03/27/1980 Smokeless Tobacco: Never Tobacco Cessation:Counseling Given: Not Answered Comments:1/2 pack a day Alcohol Use Standard Drinks/Week Comments Yes 0 (1 standard drink = 0.6 oz pur e alcohol) Sex and Gender Information Value Date Recorded Sex Assigned at Not on file Legal Sex Male 1:38 PM CDT Gender Identity Not on file Sexual Orientation Not on file Last Filed Vital Signs Vital Sign Reading Time Taken Comments Blood Pressure 136/90 07/27/2023 3:31 PM PIG CONVEYOR OPERATOR Pulse 90 07/27/2023 3:23 PM PIG CONVEYOR OPERATOR Temperature 36.4 ??C (97.6 ??F) 07/27/2023 3:23 PM CS T Respiratory Rate 18 07/27/2023 3:23 PM PIG CONVEYOR OPERATOR Oxygen Saturation 99% 07/27/2023 3:23 PM PIG CONVEYOR OPERATOR Inhaled Oxygen Concentration - - Weight 79.2 kg (174 lb 9.6 oz) 07/27/2023 3:23 P M PIG CONVEYOR OPERATOR Height 175.3 cm (5' 9 ) 05/26/2022 2:09 PM CDT Body Mass Index 25.78 05/26/2022 2:09 PM CDT Plan of Treatment Health Maintenance Due Date Last Done Comments DTAP/TDAP/TD VACCINES (1 - Tdap) 1962 PNEUMOCOCCAL VACCINE 65+ YEARS (1 of 1 - PCV) 08/12/19 93 ZOSTER VACCINE (1 of 2) 1993 RSV VACCINE (60+ or ) (1 - 1-dose 75+ series) 2018 INFLUENZA VACCINE (#1) 2024 Colorectal Cancer Screening Discontinued FIT/FOBT Q 1 year Discontinued 07/12/2020 COLORECTAL SCREENING Discontinued FIT-DNA Q 3 years Discontinued Flex Sig/CT Colonography Q 5 years Discontinued Procedures Procedure Name Priority Date/Time Associated Diagnosis Comments POC OCCULT BLOOD 1 CARD Routine 07/12/2020 Anemia, unspecified type from Last 3 Months or Most Recently Relevant to Health Maintenance Results * POC OCCULT BLOOD 1 CARD (07/12/2020) Stool STOOL SPECIMEN / Unknown Amanda BEAVERS POINT OF CARE TESTING Fin al Result NON [facility] from Last 3 Months or Most Recently Relevant to Health Maintenance Insurance MEDICARE PART A AND B GENERIC PAYOR Care Teams Electric Organ Assembler And Checker Relationship Specialty Start Date End Date Caesar Mathews MD [address] [place] [phone] PCP - General Family Practice 03/09/20
[2024-10-14 19:58] LABS: Prostate Specific Antigen 26.8 ng/mL (< OR = 4.0)
== END 2024-10-14 14:24 | disposition home or self-care (01) ==
LOC: ANHGOSHLAB 14:25
PROVIDERS: PCP Family Medicine
DX: C61 Malignant neoplasm of prostate (principal)
CPT/HCPCS: 36415; 84153

== ENCOUNTER 2024-12-21 13:02 | Outpatient (CLI) | payer MEDICARE, OTHER, SELFPAY ==
--- OUTSIDE RECORDS SUMMARY | 2024-12-21 14:33 | XMS_ITS | Clinical Summary ---
Author Organization [facility] Fernanda Novoa Address [address] [place] [address] Care Team Providers Care Panel Machine Operator Name Role Phone Caesar Mathews MD Primary [...] Comments Blood Pressure 136/90 07/27/2023 3:31 PM FORENSIC MATERIALS ENGINEER Pulse 90 07/27/2023 3:23 PM FORENSIC MATERIALS ENGINEER Temperature 36.4 C (97.6 F) 07/27/2023 3:23 PM FORENSIC MATERIALS ENGINEER Respiratory Rate 18 07/27/2023 3:23 PM FORENSIC MATERIALS ENGINEER Oxygen Saturation 99% 07/27/2023 3:23 PM FORENSIC MATERIALS ENGINEER Inhaled Oxygen Concentration - - Weight 79.2 kg (174 lb 9.6 oz) 07/27/2023 3:23 P M FORENSIC MATERIALS ENGINEER Height 175.3 cm (5' 9 ) 05/26/2022 2:09 PM CDT Body Mass Index 25.78 05/26/2022 2:09 PM CDT Plan of Treatment Health Maintenance Due Date Last Done Comments DTAP/TDAP/TD VACCINES (1 - Tdap) 1962 PNEUMOCOCCAL VACCINE 50+ YEARS (1 of 1 - PCV) 08/12/19 [...] A AND B GENERIC PAYOR Care Teams Panel Machine Operator Relationship Specialty Start Date End Date Caesar Mathews MD [address] [place] [id number] PCP - General Family Practice 03/09/20
--- OUTSIDE RECORDS SUMMARY | 2024-12-21 14:33 | XMS_ITS | Clinical Summary ---
Author Organization [facility] Address [address] [place] [address] Care Team Providers Care Sport Shoe Spike Assembler Name Role Phone None, Provider Primary Care Provider Unavaila ble Social History [...] - 1-dose 75+ series) 2018 COVID-19 Vaccine ( - 2023-2 5 season) 2024 Meningococcal B Vaccine Aged Out No l onger eligible based on patient's age to complete this topic Meningococcal Vaccine Aged Out No terry deanne eligible based on patient's age to complete this topic RSV Immunizations Under 20 Months Aged Out No longer eligible based on patient's age to complete this topic Care Teams Sport Shoe Spike Assembler Relationship Specialty Start Date End Date None, Provider, PCP - General 06/14/19
--- OUTSIDE RECORDS SUMMARY | 2024-12-21 14:33 | XMS_ITS | Continuity of Care Document ---
Author Organization [facility] Address [address] [place] [address] utive [facility] [address] [place] [address] Phone Care Team Providers Care Sill Worker Name Role Phone Mihai Fischer Unavailable Unavailable Advance Directives Directive Yes / No Effective Date File Name No Information Encounters Encounter Description Practice Location Reason(s) For Visit Diagnoses Date Provider Providers Copied on Encounter Merged with [facility], [address] [place] [address] [address], [place], [place], [id number], [place] tel:[phone] [facility] No Information Sep-2 0-200 6 [address] , [address], [place], [address], [place]. tel:[phone] Family History Family Member Type Diagnosis Age At Onset No Information Payers Payer name Insurance type Covered constitution party ID Authoriza tion(s) No Information Social History [...]
--- OUTSIDE RECORDS SUMMARY | 2024-12-21 14:33 | XMS_ITS | Clinical Summary ---
Author Organization [facility] Address [address], [address] [address] Phone Care Team Providers Care Drug Inspector Name Role Phone Caesar Mathews MD Primary Care Provider Popeye Padron DO Unavailable [phone] Allergies Active Allergy Reactions Criticality Noted [...] complete this topic Insurance MEDICARE Care Teams Drug Inspector Relationship Specialty Start Date End Date Caesar Mathews MD PCP - General Family Medicine 07/27/17 Popeye Padron DO Gastroenterology 07/27/17
[2024-12-21 20:14] LABS: Prostate Specific Antigen 36.8 ng/mL (< OR = 4.0)
== END 2024-12-21 13:03 | disposition home or self-care (01) ==
LOC: ANHGOSHLAB 13:05
PROVIDERS: PCP Family Medicine
DX: C61 Malignant neoplasm of prostate (principal)
CPT/HCPCS: 36415; 84153

== ENCOUNTER 2025-01-18 13:31 | Outpatient (CLI) | payer MEDICARE, OTHER, SELFPAY ==
--- OUTSIDE RECORDS SUMMARY | 2025-01-18 13:43 | XMS_ITS | Continuity of Care Document ---
Author Organization [facility] Address [address] [place] [address] utive [facility] [address] [place] [address] Phone Care Team Providers Care Wet Press Tender Name Role Phone Mihai Fischer Unavailable Unavailable Advance Directives Directive Yes / No Effective Date File Name No Information Encounters Encounter Description Practice Location Reason(s) For Visit Diagnoses Date Provider Providers Copied on Encounter [facility], [address] [place] [address] [address], [place], [place], [id number], [place] tel:[phone] [facility] No Information Sep-2 0-200 6 [address] , [address], [place], [address], [place]. tel:[phone] Family History Family Member Type Diagnosis Age At Onset No Information Payers Payer name Insurance type Covered republican ID Authoriza tion(s) No Information Social History [...]
--- OUTSIDE RECORDS SUMMARY | 2025-01-18 13:43 | XMS_ITS | Clinical Summary ---
Author Organization [facility] Address [address] [place] [address] Care Team Providers Care Post Tensioning Ironworker Helper Name Role Phone Caesar Mathews MD Primary [...] History of pulmonary embolism 06/27/2020 Hydronephrosis 06/27/2020 Family History Medical History Relation Name Comments [...] Comments Blood Pressure 136/90 07/27/2023 3:31 PM MAGICIAN/ILLUSIONIST Pulse 90 07/27/2023 3:23 PM MAGICIAN/ILLUSIONIST Temperature 36.4 C (97.6 F) 07/27/2023 3:23 PM MAGICIAN/ILLUSIONIST Respiratory Rate 18 07/27/2023 3:23 PM MAGICIAN/ILLUSIONIST Oxygen Saturation 99% 07/27/2023 3:23 PM MAGICIAN/ILLUSIONIST Inhaled Oxygen Concentration - - Weight 79.2 kg (174 lb 9.6 oz) 07/27/2023 3:23 P M MAGICIAN/ILLUSIONIST Height 175.3 cm (5' 9 ) 05/26/2022 [...] OF CARE TESTING Fin al Result NON [facility] from Last 3 Months or Most Recently Relevant to Health Maintenance Insurance MEDICARE PART A AND B GENERIC PAYOR Care Teams Post Tensioning Ironworker Helper Relationship Specialty Start Date End Date Caesar Mathews MD [address] [place] [address] PCP - General Family Practice 03/09/20
--- OUTSIDE RECORDS SUMMARY | 2025-01-18 13:43 | XMS_ITS | Clinical Summary ---
Author Organization [facility] Address [address] [place] [address] Care Team Providers Care Doll Wigs Hackler Name Role Phone None, Provider Primary Care [...] Td Vaccines ( 1 - Tdap) 1962 Pneumococcal Vaccine: 50+ Ye ars (1 of 1 - PCV) 1993 Zoster Vaccines (1 of 2) 1993 RSV Immunization or 60+ Years (1 - [...] age to complete this topic Care Teams Doll Wigs Hackler Relationship Specialty Start Date End Date None, Provider, PCP - General 06/14/19
--- OUTSIDE RECORDS SUMMARY | 2025-01-18 13:43 | XMS_ITS | Clinical Summary ---
Author Organization [facility] Address [address], [address] [address] Phone Care Team Providers Care Radiology Aide Name Role Phone Caesar Mathews MD Primary Care Provider Popeye Padron DO Unavailable [phone] Allergies Active Allergy Reactions Criticality Noted Date [...] complete this topic Insurance MEDICARE Care Teams Radiology Aide Relationship Specialty Start Date End Date Caesar Mathews MD PCP - General Family Medicine 07/27/17 Popeye Padron DO Gastroenterology 07/27/17
[2025-01-18 19:29] LABS: Basophils Percent Auto 0.4 % (0.2-1.2); Eosinophils Absolute Auto 0.2 K/mm3 (0-0.3); Eosinophils Percent Auto 4.4 % (0-4.4); Hematocrit 35.8 % (42.0-52.0); Hemoglobin 11.7 g/dL (14.0-18.0); Immature Granulocyte Absolute 0.01 K/mm3 (0.00-0.031); Immature Granulocyte Percent A 0.2 % (0-0.5); Lymphocytes Absolute Auto 1.49 K/mm3 (0.9-3.2); Lymphocytes Percent Auto 29.6 % (18.3-44.2); Mean Corpuscular HGB Conc 32.7 g/dl (32-36); Mean Corpuscular Hemoglobin 34.9 pg (26-34); Mean Corpuscular Volume 106.9 fl (80-100); Monocytes Percent Auto 18.8 % (2.6-8.5); Neutrophils Absolute Auto 2.4 K/mm3 (1.3-6.7); Neutrophils Percent Auto 46.6 % (45.5-73.1); Platelet Count Result 248 k/mm3 (150-375); Red Blood Count 3.35 M/mm3 (4.6-6.20); Red Cell Distribution Width 13.3 % (11.5-14.5)
[2025-01-18 20:06] LABS: Alanine Aminotransferase 25 U/L (6-50); Alkaline Phosphatase 96 U/L (38-126); Anion Gap 8 mmol/L (4-12); Aspartate Amino Transferase 33 U/L (17-59); Bilirubin,Total 0.2 mg/dL (0.2-1.3); Blood Urea Nitrogen 25 mg/dL (9-20); Carbon Dioxide 25 mmol/L (22-30); Chloride 105 mmol/L (98-107); Estimated Glomerular Filt Rate 53; Glucose 112 mg/dL (65-110); Potassium 4.5 mmol/L (3.4-5.0); Sodium 138 mmol/L (137-145)
[2025-01-18 20:21] LABS: Prostate Specific Antigen 41.7 ng/mL (< OR = 4.0)
[2025-01-18 20:23] LABS: Anisocytosis 1+; Macrocytosis 1+ (NORMAL); Platelet Estimate Adequate (Adequate)
[2025-01-18 20:24] LABS: Schistocytes None Seen
[2025-01-18 20:32] LABS: Hemoglobin A1C 5.2 % (<5.7)
== END 2025-01-18 13:32 | disposition home or self-care (01) ==
PROVIDERS: Urology; PCP Family Medicine; Visit Provider Family Medicine
DX: I10 Essential (primary) hypertension (principal); Z00.00 Encounter for general adult medical examination without abnormal findings; R73.9 Hyperglycemia, unspecified; R73.03 Prediabetes; C61 Malignant neoplasm of prostate
CPT/HCPCS: 36415; 80053; 83036; 84153; 85025

== ENCOUNTER 2025-04-27 08:29 | Outpatient (CLI) | payer MEDICARE, OTHER, SELFPAY ==
--- OUTSIDE RECORDS SUMMARY | 2025-04-27 08:36 | XMS_ITS | Clinical Summary ---
Author Organization [facility] Address [address] [place] [address] Care Team Providers Care Casing Splitter Name Role Phone Caesar Mathews MD Primary [...] Comments Blood Pressure 136/90 07/27/2023 3:31 PM NUTRIENT MANAGEMENT SPECIALIST Pulse 90 07/27/2023 3:23 PM NUTRIENT MANAGEMENT SPECIALIST Temperature 36.4 C (97.6 F) 07/27/2023 3:23 PM NUTRIENT MANAGEMENT SPECIALIST Respiratory Rate 18 07/27/2023 3:23 PM NUTRIENT MANAGEMENT SPECIALIST Oxygen Saturation 99% 07/27/2023 3:23 PM NUTRIENT MANAGEMENT SPECIALIST Inhaled Oxygen Concentration - - Weight 79.2 kg (174 lb 9.6 oz) 07/27/2023 3:23 P M NUTRIENT MANAGEMENT SPECIALIST Height 175.3 cm (5' 9) 05/26/2022 2:09 PM CDT Body Mass Index 25.78 05/26/2022 2:09 PM CDT Plan of Treatment Upcoming Encounters Date Type Department Care Team (Late st Contact Info) Description 07/20/2025 2:45 PM NUTRIENT MANAGEMENT SPECIALIST Office Visit [facility] Oncology and Hematology - Andres [address] [facility] [address] [place] [address] Conor Delacruz MD [address] [facility] [address] [place] [address] Health Maintenance Due Date Last Done Comments DTAP/TDAP/TD VACCINES (1 - Tdap) 1962 PNEUMOCOCCAL VACCINE 50+ YEARS (1 of 1 - PCV) 08/12/19 93 ZOSTER VACCINE (1 of 2) 1993 RSV VACCINE (60+ or ) (1 - 1-dose 75+ series) 2018 INFLUENZA VACCINE (#1) 2025 Colorectal Cancer Screening Discontinued FIT/FOBT Q 1 [...] OF CARE TESTING Fin al Result NON [facility] from Last 3 Months or Most Recently Relevant to Health Maintenance Insurance MEDICARE PART A AND B GENERIC PAYOR Care Teams Casing Splitter Relationship Specialty Start Date End Date Caesar Mathews MD [address] [place] [address] PCP - General Family Practice 03/09/20
--- OUTSIDE RECORDS SUMMARY | 2025-04-27 08:36 | XMS_ITS | Clinical Summary ---
Author Organization [facility] Address [address] [place] [address] Care Team Providers Care Part Time Receptionist Name Role Phone None, Provider Primary Care [...] age to complete this topic Care Teams Part Time Receptionist Relationship Specialty Start Date End Date None, Provider, PCP - General 06/14/19
--- OUTSIDE RECORDS SUMMARY | 2025-04-27 08:36 | XMS_ITS | Clinical Summary ---
Author Organization [facility] Address [address], [address] [address] Phone Care Team Providers Care Director Export Name Role Phone Caesar Matehws MD Primary Care Provider Popeye Padron DO Unavailable [phone] Allergies Active Allergy Reactions Criticality Noted [...] (Adult) (1 - 1-dose 75+ series) 2018 SARS-COV-2 Immunization ( season) 2024 09/20/2021, 11/29/2020, 11/08/2020 Influenza Immunization (#1) 2025 Hepatitis B Immunization Aged Out No longer eligible based on patient's age to complete this topic Human Papillomavirus (HPV) Immunization Aged Out No longer eligible b ased on patient's age to complete this topic Meningococcal Immunization (ACWY) Aged Out No longer eligible b ased on patient's age to complete this topic Rotavirus Immunization Aged Out No lo nger eligible based on patient's age to complete this topic Insurance MEDICARE Care Teams Director Export Relationship Specialty Start Date End Date Caesar Mathews MD PCP - General Family Medicine 07/27/17 Popeye Padron DO Gastroenterology 07/27/17
--- OUTSIDE RECORDS SUMMARY | 2025-04-27 08:37 | XMS_ITS | Continuity of Care Document ---
Author Organization [facility] Address [address] [place] [address] utive [facility] [address] [place] [address] Phone Care Team Providers Care French Binder Name Role Phone Mihai Fischer Unavailable Unavailable Advance Directives Directive Yes / No Effective Date File Name No Information Encounters Encounter Description Practice Location Reason(s) For Visit Diagnoses Date Provider Providers Copied on Encounter [facility], [address] [place] [address] [address], [place], [place], [id number], [place] tel:[phone] [facility] No Information Sep-2 0-200 6 [address] , [address], [place], [address], [place]. tel:[phone] Family History Family Member Type Diagnosis Age [...]
[2025-04-27 11:19] LABS: Hematocrit 37.4 % (42.0-52.0); Hemoglobin 11.8 g/dL (14.0-18.0); Immature Granulocyte Percent A 0.2 % (0-0.5); Lymphocytes Absolute Auto 1.92 K/mm3 (0.9-3.2); Mean Corpuscular HGB Conc 31.6 g/dl (32-36); Mean Corpuscular Hemoglobin 33.4 pg (26-34); Mean Corpuscular Volume 105.9 fl (80-100); Nucleated Red Blood Cells Absolute Auto 0.000 K/mm3 (0.0-0.012); Nucleated Red Blood Cells Perc 0.0 % (0.0-0.2); Platelet Count Result 228 k/mm3 (150-375); Red Blood Count 3.53 M/mm3 (4.6-6.20); White Blood Count 5.1 K/mm3 (4.5-10.0)
[2025-04-27 11:28] LABS: Alanine Aminotransferase 20 U/L (6-50); Albumin Level 4.0 g/dL (3.5-5.1); Alkaline Phosphatase 91 U/L (38-126); Anion Gap 7 mmol/L (4-12); Aspartate Amino Transferase 36 U/L (17-59); Bilirubin,Total 0.5 mg/dL (0.2-1.3); Blood Urea Nitrogen 30 mg/dL (9-20); Calcium 11.6 mg/dL (8.4-10.2); Carbon Dioxide 26 mmol/L (22-30); Chloride 108 mmol/L (98-107); Cholesterol 209 mg/dL (0-200); Estimated Glomerular Filt Rate 37; Glucose 104 mg/dL (65-110); HDL Direct 37 mg/dL; Potassium 4.8 mmol/L (3.4-5.0); Sodium 141 mmol/L (137-145); Total Protein 7.5 g/dL (6.3-8.2); Triglycerides 173 mg/dL (<150)
[2025-04-27 13:22] LABS: Iron 88 ug/dL (49-181)
[2025-04-27 13:32] LABS: Percent Iron Saturation 29 % (20-50)
[2025-04-27 13:54] LABS: Thyroid Stimulating Hormone Reflex 3.330 uIU/mL (0.465-4.68)
[2025-04-27 14:08] LABS: Ferritin 23.40 ng/mL (11.1-264)
[2025-04-27 15:23] LABS: Hemoglobin A1C 5.8 % (<5.7)
== END 2025-04-27 08:30 | disposition home or self-care (01) ==
LOC: ANHGOSHLAB 08:30
PROVIDERS: PCP Family Medicine; Visit Provider Family Medicine
DX: R73.03 Prediabetes (principal); E55.9 Vitamin D deficiency, unspecified; I10 Essential (primary) hypertension; D50.9 Iron deficiency anemia, unspecified; E78.5 Hyperlipidemia, unspecified
CPT/HCPCS: 36415; 80053; 80061; 82306; 82728; 83036; 83540; 83550; 84443; 85025

== ENCOUNTER 2025-05-08 10:17 | Outpatient (CLI) | payer MEDICARE, OTHER, SELFPAY ==
[2025-05-08 10:42] LABS: Hematocrit 36.7 % (42.0-52.0); Hemoglobin 12.1 g/dL (14.0-18.0); Immature Granulocyte Percent A 0.2 % (0-0.5); Lymphocytes Absolute Auto 1.97 K/mm3 (0.9-3.2); Mean Corpuscular HGB Conc 33.0 g/dl (32-36); Mean Corpuscular Hemoglobin 33.8 pg (26-34); Mean Corpuscular Volume 102.5 fl (80-100); Nucleated Red Blood Cells Absolute Auto 0.000 K/mm3 (0.0-0.012); Nucleated Red Blood Cells Perc 0.0 % (0.0-0.2); Platelet Count Result 236 k/mm3 (150-375); Red Blood Count 3.58 M/mm3 (4.6-6.20); White Blood Count 5.7 K/mm3 (4.5-10.0)
--- OUTSIDE RECORDS SUMMARY | 2025-05-08 11:10 | XMS_ITS | Clinical Summary ---
Author Organization [facility] Fernanda Novoa Address [address] [place] [address] Care Team Providers Care Box Brander Name Role Phone Caesar Mathews MD Primary [...] Encounters Date Type Department Care Team Description 05/08/2025 Orders Only [facility] Oncology and Hematology - [address] [place] [address] Conor Delacruz MD Anemia, unspecified type (Primary Dx) from Last 3 Months Family History Medical [...] Comments Blood Pressure 136/90 07/27/2023 3:31 PM BULB ASSEMBLER Pulse 90 07/27/2023 3:23 PM BULB ASSEMBLER Temperature 36.4 C (97.6 F) 07/27/2023 3:23 PM BULB ASSEMBLER Respiratory Rate 18 07/27/2023 3:23 PM BULB ASSEMBLER Oxygen Saturation 99% 07/27/2023 3:23 PM BULB ASSEMBLER Inhaled Oxygen Concentration - - Weight 79.2 kg (174 lb 9.6 oz) 07/27/2023 3:23 P M BULB ASSEMBLER Height 175.3 cm (5' 9) 05/26/2022 2:09 PM CDT Body Mass Index 25.78 05/26/2022 2:09 PM CDT Plan of Treatment Upcoming Encounters Date Type Department Care Team (Late st Contact Info) Description 05/09/2025 9:15 AM CDT Office Visit [facility] Oncology and Hematology - [address] [place] [address] Conor Delacruz MD [address] [facility] [address] [place] [address] 07/20/2025 2:45 PM BULB ASSEMBLER Office Visit [facility] Oncology and Hematology - [place] [address] [facility] [address] [place] [address] Conor Delacruz MD [address] [facility] [address] [place] [address] Health Maintenance Due Date Last [...] (07/12/2020) Stool STOOL SPECIMEN / Unknown Amanda Santos ANP POINT OF CARE TESTI NG Final Result Performing Organization Address City/State/ZIP Co co Phone Number NON [facility] from Last 3 Months or Most Recently Relevant to Health Maintenance Insurance MEDICARE PART A AND B GENERIC PAYOR Care Teams Box Brander Relationship Specialty Start Date End Date Caesar Mathews MD [address] [place] [address] PCP - General Family Practice 03/09/20
--- OUTSIDE RECORDS SUMMARY | 2025-05-08 11:10 | XMS_ITS | Encounter Summary ---
Author Organization [facility] [employer] [facility] Address [address] [place] [address] Care Team Providers Care Tire Trimmer Hand Name Role Phone Caesar Mathews MD Primary Care Provider Encounter Details Date Type Department Care Team (Late Contact Info) Description 05/08/2025 Orders Only [facility] Oncology [facility] Hematology [facility] [address] [place] [address] Conor Delacruz MD [address] [place], [place] [address] [address] [place] [address] Anemia, unspecified type (Primary Dx) Social History Tobacco Use Types Packs/Day Years Used Date Smoking Tobacco: Former Cigarettes Q uit: 03/27/1980 Smokeless Tobacco: Never Comments:1/2 pack a day Alcohol Use Standard Drinks/Week Comments Yes 0 (1 standard drink = 0.6 oz pur e alcohol) Sex and Gender Information Value Date Recorded Sex Assigned at Not on file Legal Sex Male 1:38 PM CDT Gender Identity Not on file Sexual Orientation Not on file documented as of this encounter Plan of Treatment Upcoming Encounters Date Type Department Care Team (Late Contact Info) Description 05/09/2025 9:15 AM CDT Office Visit [facility] Oncology critical access hospital Hematology [facility] [address] [place] [address] Conor Delacruz MD [facility] [employer] [address] [place] [address] 07/20/2025 2:45 PM MEDICAL PHYSICS PROFESSOR Office Visit [facility] Oncology and Hematology - Andres [address] [facility] [address] [place] [address] Conor Delacruz MD [address] [facility] [address] [place] [address] Scheduled Orders Name Type Priority Associated Diagnoses Orde r Schedule COMPREHENSIVE METABOLIC PANEL Lab Routine Anemia, unspecified type Expected: 05/08/2025, Expires: 05/08/2026 CBC WITH DIFFERENTIAL Lab Routine Anemia, unspecified type Expected: 05/08/2025, Expires: 05/08/2026 PSA Lab Routine Anemia, unspecified type Expected: 05/08/2025, Expires: 05/08/2026 documented as of this encounter Visit Diagnoses Diagnosis Anemia, unspecified type- Primary documented in this encounter Care Teams Tire Trimmer Hand Relationship Specialty Start Date End Date Caesar Mathews MD [address] [place] [address] PCP - General Family Practice 03/09/20 documented as of this encounter
--- OUTSIDE RECORDS SUMMARY | 2025-05-08 11:10 | XMS_ITS | Clinical Summary ---
Author Organization [facility] Address [address], [address] [address] Phone Care Team Providers Care Sales And Service Consultant Name Role Phone Caesar Mathews MD Primary Care Provider Popeye Padron DO Unavailable [phone] Allergies Active Allergy Reactions Criticality Noted [...] complete this topic Insurance MEDICARE Care Teams Sales And Service Consultant Relationship Specialty Start Date End Date Caesar Mathews MD PCP - General Family Medicine 07/27/17 Popeye Padron DO Gastroenterology 07/27/17
--- OUTSIDE RECORDS SUMMARY | 2025-05-08 11:10 | XMS_ITS | Clinical Summary ---
Author Organization [facility] Address [address] [place] [address] Care Team Providers Care Surgical Scrub Technician Name Role Phone None, Provider Primary Care [...] age to complete this topic Care Teams Surgical Scrub Technician Relationship Specialty Start Date End Date None, Provider, PCP - General 06/14/19
[2025-05-08 12:18] LABS: Alanine Aminotransferase 20 U/L (6-50); Albumin Level 4.2 g/dL (3.5-5.1); Alkaline Phosphatase 92 U/L (38-126); Anion Gap 9 mmol/L (4-12); Aspartate Amino Transferase 26 U/L (17-59); Bilirubin,Total 0.4 mg/dL (0.2-1.3); Blood Urea Nitrogen 28 mg/dL (9-20); Calcium 11.0 mg/dL (8.4-10.2); Carbon Dioxide 26 mmol/L (22-30); Chloride 106 mmol/L (98-107); Estimated Glomerular Filt Rate 40; Glucose 121 mg/dL (65-110); Potassium 4.8 mmol/L (3.4-5.0); Sodium 141 mmol/L (137-145); Total Protein 7.6 g/dL (6.3-8.2)
[2025-05-08 13:56] LABS: Prostate Specific Antigen 50.7 ng/mL (< OR = 4.0)
== END 2025-05-08 10:18 | disposition home or self-care (01) ==
PROVIDERS: PCP Family Medicine; Visit Provider Internal Medicine Hematology & Oncology
DX: D64.9 Anemia, unspecified (principal); R97.20 Elevated prostate specific antigen [PSA]
CPT/HCPCS: 36415; 80053; 84153; 85025

== ENCOUNTER 2025-05-24 12:37 | Outpatient (CLI) | payer MEDICARE, OTHER, SELFPAY ==
--- NOTE | ~2025-05-24 | PE_ITS ---
EXAMINATION: PET_PETPSMAST_PT DATE: 05/24/2025 16:44 INDICATION: Prostate cancer. TECHNIQUE: 4.224 mCi of Ga-68 gozetotide was administered intravenously. Low dose computed tomography (CT) images were acquired from the base of the brain to the proximal thighs for attenuation correction and anatomic localization. Automated exposure control was employed. Dose-length product (DLP) was 872 mGy- cm. Positron emission tomography (PET) images were acquired in the same distribution. COMPARISON: PET/CT 09/30/2024 FINDINGS: Head/neck: There are no pathologically enlarged lymph nodes. Chest: The lungs demonstrate mild atelectasis. There is a diffuse interstitial pattern in the lungs, which may be pulmonary edema or chronic interstitial lung disease. No pleural effusion. The heart size is normal. There are coronary artery calcifications. No pericardial effusion. There is a moderate-sized sliding hiatal hernia. Abdomen/pelvis/proximal thighs: The liver, gallbladder, spleen, pancreas, and adrenal glands are normal. There are cysts in right kidney measuring up to 5.7 cm. There is severe atrophy of left kidney. There is severe left hydronephrosis and hydroureter. There are changes of prostatectomy. There are masses in the prostatectomy bed measuring 5.4 x 3.6 cm with maximum SUV of 13.6 on the right and 4.5 x 3.1 cm with maximum SUV of 17.3 on the left. There are no dilated loops of bowel. The appendix is normal. There are no pathologically enlarged lymph nodes. There is no free intraperitoneal fluid. There is no evidence of osseous metastatic disease. IMPRESSION: 1. Stable masses with increased activity in the prostatectomy bed, consistent with prostate cancer. 2. Severe left hydronephrosis and hydroureter. Severe left kidney atrophy. 3. Moderate-sized sliding hiatal hernia. 4. Diffuse interstitial pattern in the lungs with mild worsening, which may be chronic interstitial lung disease or pulmonary edema. Reviewed, dictated and finalized at location E. IMPRESSION: 1. Stable masses with increased activity in the prostatectomy bed, consistent w ith prostate cancer. 2. Severe left hydronephrosis and hydroureter. Severe left kidney atrophy. 3. Moderate-sized sliding hiatal hernia. 4. Diffuse interstitial pattern in the lungs with mild worsening, which may be chronic interstitial lung disease or pulmonary edema.
--- OUTSIDE RECORDS SUMMARY | 2025-05-24 13:16 | XMS_ITS | Clinical Summary ---
Author Organization [facility] Fernanda Novoa Address [address] [place] [address] Care Team Providers Care Foreign Service Officer Name Role Phone Caesar Mathews MD Primary [...] TWICE DAILY 30 Tablet 3 01/29/2023 Active FeroSuL 325 mg (65 mg iron) tablet Take 1 Tablet by mouth 2 times daily. 04/03/2025 Active Active Problems Problem Noted Date Diagnosed Date Chronic anemia 03/03/2022 History of prostate cancer 06/27/2020 Personal history of DVT (deep vein thrombosis) 1 History of pulmonary embolism 06/27/2020 Hydronephrosis 06/27/2020 Encounters Date Type Department Care Team Description 05/16/2025 External Device Data STL ABSTRACTION Provider, Abstract 05/16/2025 External Device Data STL ABSTRACTION Provider, Abstract 05/16/2025 External Device Data STL ABSTRACTION Provider, Abstract 05/09/2025 9:15 AM CDT Office Visit [facility] Oncology and Hematology [facility] [address] [place] [address] Conor Delacruz MD Prostate cancer (CMS/HCC) (Primary Dx) 05/09/2025 Orders Only [facility] Oncology and Hematology [facility] [address] [place] [address] Conor Delacruz MD 05/08/2025 Orders Only [facility] Oncology and Hematology - Andres [address] [place] [address] Conor Delacruz MD Anemia, unspecified type (Primary [...] Sign Reading Time Taken Comments Blood Pressure 116/72 05/09/2025 9:03 AM CDT Pulse 98 05/09/2025 9:03 AM CDT Temperature 37.1 C (98.7 F) 05/09/2025 9:03 AM CDT Respiratory Rate 12 05/09/2025 9:03 AM CDT Oxygen Saturation 98% 05/09/2025 9:03 AM CDT Inhaled Oxygen Concentration - - Weight 73.4 kg (161 lb 12.8 oz) 05/09/2025 9:03 AM CDT Height 175.3 cm (5' 9) 05/26/2022 2:09 PM CDT Body Mass Index 23.89 05/26/2022 2:09 PM CDT Plan of Treatment Health Maintenance Due Date Last Done Comments Traditional Medicare (ACO) A nnual Wellness Visit 1964 PNEUMOCOCCAL VACCINE 50+ YEA RS (1 of 1 - PCV) 1993 ZOSTER VACCINE (2 of 3) 05/13/2016 03/18/2016 RSV VACCINE (60+ or ) (1 - 1-dose 75+ series) 2018 DTAP/TDAP/TD VACCINES (2 - T d or Tdap) 10/31/2023 10/31/2013 INFLUENZA VACCINE (#1) 2025 3, 06/22/2022, 06/01/2021, Additional history exists Colorectal Cancer Screening Discontinued FIT/FOBT Q 1 year Discontinued 07/12/2020 COLORECTAL SCREENING Discontinued FIT-DNA Q 3 years Discontinued Flex Sig/CT Colonography Q 5 years Discontinued Procedures Procedure Name Priority Date/Time Associated Diagnosis Comments COMPREHENSIVE METABOLIC PANEL Routine 05/08/2025 10:38 AM CDT CBC WITH AUTODIFFERENTIAL Routine 2024 10:30 AM CDT POC OCCULT BLOOD 1 CARD Routine 07/12/2020 Anemia, unspecified type from Last 3 Months or Most Recently Relevant to Health Maintenance Results * COMPREHENSIVE METABOLIC PANEL (05/08/2025 10:38 AM CDT) Blood us Conor Delacruz MD CHEMISTRY ORDERABLES Final Resu lt * CBC WITH AUTODIFFERENTIAL (05/08/2025 10:30 AM CDT) Blood us Conor Delacruz MD HEMATOLOGY ORDERABLES Final Res ult * POC OCCULT BLOOD 1 CARD (07/12/2020) Stool STOOL SPECIMEN / Unknown Amanda Santos ANP POINT OF CARE TESTI NG Final Result NON [facility] from Last 3 Months or Most Recently Relevant to Health Maintenance Insurance MEDICARE PART A AND B GENERIC PAYOR Care Teams Foreign Service Officer Relationship Specialty Start Date End Date Caesar Mathews MD [address] [place] [phone] PCP - General Family Practice 03/09/20
--- OUTSIDE RECORDS SUMMARY | 2025-05-24 13:16 | XMS_ITS | Clinical Summary ---
Author Organization [facility] Address [address], [address] [address] Phone Care Team Providers Care Web Interface Developer Name Role Phone Caesar Mathews MD Primary Care Provider Popeye Padron DO Unavailable [phone] Allergies Active Allergy Reactions Criticality Noted [...] complete this topic Insurance MEDICARE Care Teams Web Interface Developer Relationship Specialty Start Date End Date Caesar Mathews MD PCP - General Family Medicine 07/27/17 Popeye Padron DO Gastroenterology 07/27/17
== END 2025-05-24 12:38 | disposition home or self-care (01) ==
PROVIDERS: PCP Family Medicine; Visit Provider Urology
DX: C61 Malignant neoplasm of prostate (principal); K44.9 Diaphragmatic hernia without obstruction or gangrene; J84.9 Interstitial pulmonary disease, unspecified
CPT/HCPCS: 78815; A9596

== ENCOUNTER 2025-08-22 13:57 | Outpatient (CLI) | payer MEDICARE, OTHER, SELFPAY ==
--- NOTE | ~2025-08-22 | PE_ITS ---
EXAMINATION: PET_PETPSMAST_PT DATE: 08/22/2025 15:49 INDICATION: Prostate cancer TECHNIQUE: 4.358 mCi of Illucix Ga-[id number]) was administered i.v. Low dose computed tomography (CT) images were acquired from the base of the brain to the base of the brain to the proximal thighs for attenuation correction and anatomic localization. Positron emission tomography (PET) images were acquired in the same distribution beginning 66 minutes after injection. Images including fused PET/CT images were reconstructed in axial, coronal, and sagittal planes. Automated exposure control technique was employed. The dose-length product was 775.33mGy-cm. COMPARISON: 05/24/2025 FINDINGS: Head/neck: Typical pattern of symmetric physiologic increased activity in the lacrimal, parotid and submandibular glands as well as along the mucosa of the nasal and oral cavities, pharynx and hypopharynx. No pathologically enlarged cervical lymphadenopathy or suspicious foci of increased uptake in the visualized head or neck. Chest: Mild emphysema. Persistent diffuse groundglass opacities and irregular septal line thickening in the bilateral mid and lower lungs which could be due to pulmonary edema or chronic interstitial lung disease with desquamative interstitial pneumonia (DIP) pattern. No suspicious pulmonary nodules or pleural effusion. Mild cardiomegaly. Atherosclerotic coronary artery calcific lesion. No pericardial effusion. Moderate-sized sliding-type hiatal hernia. Thoracic aorta is normal in caliber. No pathologically enlarged or PSMA avid thoracic lymphadenopathy. Abdomen/pelvis/proximal thighs: Physiologic renal accumulation and excretion of activity in the right kidney, partially decompressed bladder and along portions of the right ureter. Photopenic defects associated with the a few low-attenuation right renal cysts the largest eccentric cyst lower pole measuring 5.8 cm. Severe atrophy of the left kidney with severe left hydroureteronephrosis extending to the distalmost ureter. Again seen are changes of prior prostatectomy. There has been interval decrease in size and degree of PSMA activity associated with soft tissue densities along the floor of the pelvis. The right of the rectum this measures approximately 5.1 x 3.6 cm, decreased from 5.9 x 4.2 cm and with decrease in the degree of uptake from maximal SUV of 13.6 to current maximal SUV of 6.6. To the left of the rectum the density is decreased from 3.8 x 3.7 cm to currently measuring 3.4 x 2.8 cm and with decrease in activity from 17.3 to current maximum SUV of 5.9. Findings consistent with response to treatment of residual locally invasive prostate cancer. The mass on the left appears to represent the site of obstruction of the dilated left ureter. Normal degree and slightly heterogenous pattern of increased uptake throughout the liver and spleen without radiologic correlate or dominant PSMA avid lesion. The gallbladder, pancreas and bilateral adrenal glands are normal. Moderate uptake scattered throughout the bowels with typical duodenal and proximal jejunal predominance and without radiologic correlate, also likely physiologic. Normal appendix. No other abnormal foci of increased uptake or pathologically enlarged lymphadenopathy in the abdomen, pelvis or proximal thighs. Musculoskeletal: Severe spondylosis throughout the cervical, thoracic and lumbar spine. No suspicious lytic, blastic or abnormally PSMA avid bone lesions. IMPRESSION: 1. Interval decrease in size and degree of PSMA PET activity associated with masses deep pelvis posterior to the prostatectomy bed and to the left and right of the rectum. Findings consistent with response to treatment of locally invasive malignancy. No more remote metastatic disease. 2. Persistent severe left hydroureteronephrosis which appears result from the mass in the deep left pelvis. 3. Moderate-sized sliding-type hiatal hernia. 4. Persistent diffuse groundglass and interstitial opacities in both lungs with lower lung predominance. Differential would include chronic interstitial lung disease with desquamative interstitial pneumonia (DIP) pattern and pulmonary edema. Reviewed, dictated and finalized at location B. NISTRATIVE LIAISON IMPRESSION: 1. Interval decrease in size and degree of PSMA PET activity associated with ma sses deep pelvis posterior to the prostatectomy bed and to the left and right o f the rectum. Findings consistent with response to treatment of locally invasiv e malignancy. No more remote metastatic disease. 2. Persistent severe left hydroureteronephrosis which appears result from the m ass in the deep left pelvis. 3. Moderate-sized sliding-type hiatal hernia. 4. Persistent diffuse groundglass and interstitial opacities in both lungs with lower lung predominance. Differential would include chronic interstitial lung disease with desquamative interstitial pneumonia (DIP) pattern and pulmonary ed parth.
== END 2025-08-22 13:58 | disposition home or self-care (01) ==
PROVIDERS: PCP Family Medicine
DX: C77.0 Secondary and unspecified malignant neoplasm of lymph nodes of head, face and neck (principal); C61 Malignant neoplasm of prostate; N13.30 Unspecified hydronephrosis; K44.9 Diaphragmatic hernia without obstruction or gangrene
CPT/HCPCS: 78815; A9596